=== PATIENT | male | born 1945 | race Caucasian/White ===

== ENCOUNTER 2016-12-23 19:26 | Inpatient (IN) ==
[2016-12-23 21:05] LABS: Bilirubin,Urine Small (Negative); Blood,Urine Large (Negative); Clarity,Urine Turbid (Clear); Color,Urine Dark Yellow (Yellow); Glucose,Urine (UA) Normal (Normal); Ketones,Urine Trace mg/dL (Negative); Leukocyte Esterase,Urine Moderate (Negative); Nitrite,Urine Negative (Negative); PH,Urine 5.5 pH Units (5.0-8.0); Protein,Urine >=300 mg/dL (Neg-Trace); Specific Gravity,Urine 1.018 (1.010-1.025); Urobilinogen,Urine Normal (Normal)
[2016-12-23 21:06] LABS: Bacteria,Urine Many per hpf (None-Few); Squamous Epithelial Cell,Urine Many per lpf (None-Few); WBC,Urine TNTC per hpf (0-3)
[2016-12-23 21:18] LABS: Basophils # 0.1 K/mcL (0.0-0.2); Basophils % 0.2 %; Eosinophils # 0.3 K/mcL (0.0-0.6); Eosinophils % 1.1 %; Hematocrit 39.9 % (37.5-50.1); Hemoglobin 13.2 g/dL (12.9-16.9); Immature Granulocytes % 1.6 % (0-4); Lymphocytes # 0.5 K/mcL (0.6-4.6); Lymphocytes % 2.1 %; Mean Corpuscular HGB Conc 33.1 g/dL (31.6-35.5); Mean Corpuscular Hemoglobin 27.7 pg (28.0-33.3); Mean Corpuscular Volume 83.8 fL (83.0-100.0); Mean Platelet Volume 9.4 fL (9.4-12.4); Monocytes # 2.8 K/mcL (0.0-1.3); Monocytes % 11.1 %; Platelet Count 348 K/mcL (140-400); Red Blood Count 4.76 M/mcL (4.19-5.50); Red Cell Distribution Width 14.8 % (11.5-14.5); Segmented Neutrophils % 83.9 %
[2016-12-23 21:24] LABS: Amorphous Sediment,Urine Few (Few); RBC,Urine 15-30 per hpf (0-3); Yeast,Urine Few per hpf (None Seen)
[2016-12-23 21:25] LABS: Hyaline Casts,Urine Few per lpf (None-Few); Renal Epithelial Cells,Urine Few per hpf (None-Few)
[2016-12-23 21:33] LABS: Calcium 10.6 mg/dL (8.6-10.8)
--- NOTE | 2016-12-23 22:06 | Emergency Department Note ---
Disposition Clinical Impression: FATMATA (acute kidney injury), Nephrostomy tube displaced UTI (urinary tract infection) Qualifiers: Urinary tract infection type: site unspecified Hematuria presence: with hematuria Qualified Code(s): N39.0 - Urinary tract infection, site not specified Disposition: Admitted As Inpatient Condition: Fair Time of Disposition: 22:12 General Adult HPI - General Chief complaint: ED Abdominal Pain Stated complaint: left nephrostomy tube came out Time Seen by Provider: 12/23/16 19:43 Source: patient Limitations: no limitations Nursing Notes Reviewed: Yes Vital Signs Reviewed: Yes - History of Present Illness HPI Narrative: Patient is a 71-year-old male who presents to [facility] ED with a chief complaint of left nephrostomy tube out. Past medical history significant for bladder cancer with metastasis. Patient follows his cancer center here with Dr. Durham. Patient has nephrostomy tubes bilaterally in the legs. States the left one was working better than the right one. However today, when he was getting up from a chair, it got pulled out. Denies any change in his baseline medical condition. He has been worsening over the last few months and per oncology notes, they have had discussions with him regarding changing CODE STATUS. I spoke with the patient and the family who state they would like him to remain a full code at this time. Onset (ago): Just SCRAPER MEAT Pain Scale: 0 Improves with: nothing Worsens with: nothing Associated symptoms: Reports: cough, loss of appetite, shortness of breath, weakness. Denies: chest pain Treatments Prior to Arrival: none - Related Data Home Medications Medication Instructions Recorded Confirmed Insulin ASPART [NovoLOG] 4 - 6 unit SQ TIDWM 06/25/15 12/23/16 Insulin Glargine,Hum.rec.anlog 20 unit SQ BID 06/25/15 12/23/16 [Lantus Solostar] Losartan Potassium [Cozaar] 50 mg PO DAILY 12/12/16 12/23/16 Melatonin [Melatin] 3 mg PO HS 12/12/16 12/23/16 Promethazine [Phenergan] 25 mg PO Q6HR PRN 12/12/16 12/23/16 Cholecalciferol (Vitamin D3) 2,000 unit PO DAILY 12/23/16 12/23/16 [Vitamin D] Megestrol Acetate [Megace] 400 mg PO DAILY 12/23/16 12/23/16 Metoprolol XL (24 HR) Succ [Toprol 25 mg PO DAILY 12/23/16 12/23/16 XL] Ondansetron HCl [Zofran] 4 mg PO Q6H PRN 12/23/16 Previous Rx's Medication Instructions Recorded Docusate Sodium [Colace] 100 mg PO BID PRN #30 capsule 12/23/16 FentaNYL PATCH [Duragesic] 12 mcg TD Q72H #5 patch.td72 12/23/16 Oxycodone HCl [Oxaydo] 5 mg PO Q6H PRN #60 tablet.orl 12/23/16 Polyethylene Glycol 3350 [MiraLAX 1 scoop PO DAILY #510 gm 12/23/16 Powder Bulk 17.9 Oz] Allergies Allergy/AdvReac Type Severity Reaction Status Date / Time No Known Allergies Allergy Verified 12/23/16 19:32 All systems ED: reviewed and negative except as stated. Past Medical History - Past Medical History Attestation: Yes The following information was validated with the patient. Source: patient Medical history: Reports: cancer, diabetes, hypertension, kidney stones Surgical history: Reports: cholecystectomy, other Psychiatric history: Reports: no psych history - Social History Smoking Status: Never smoker Smokeless Tobacco Status: Yes Alcohol use: Reports: none Drug use: Reports: none Physical Exam - General Limitations: no limitations General appearance: alert, in no apparent distress - Head Head exam: atraumatic, normocephalic, normal inspection - Eye Eye exam: Present: normal appearance, PERRL, EOMI - ENT ENT exam: normal exam, normal oropharynx, mucous membranes moist - Neck Neck exam: Present: normal inspection, full ROM, trachea midline - Chest Chest inspection: Present: normal inspection, symmetric chest wall rise - Respiratory Respiratory exam: Present: other (Course breath sounds bilaterally) - Cardiovascular Cardiovascular exam: Present: regular rate, normal rhythm, normal heart sounds - Abdominal Exam Abdominal exam: Present: tenderness, distention Abdominal tenderness: Present: diffuse - Extremities Exam Extremities exam: Present: normal inspection, full ROM. Absent: tenderness, pedal edema - Back Exam Back exam: Present: normal inspection, full ROM. Absent: tenderness - Neurological Exam Neurological exam: Present: alert, oriented X3 - Psychiatric Psychiatric exam: Present: normal affect, normal mood - Skin Skin exam: Present: warm, dry, intact, normal color Course Course Narrative: Patient seen and examined. Left nephrostomy tube out. Family states they are just here to get the nephrostomy tube replaced. I spoke with urologist Dr. Becker who states will need to have interventional radiology, and to do it over the weekend if his renal function is worsening. Lab work shows elevated creatinine now up to 2.5. We will need to get patient admitted. I spoke with hospitalist Dr. Abel who has accepted patient for admission. We are paging interventional radiology at this time to get the patient scheduled for nephrostomy tube placement tomorrow. - Reevaluation(s) Reevaluation #1: Patient's creatinine is worse from before at 2.5. 1L NS ordered. I spoke with hospitalist Dr. Abel who has accepted patient for admission. Would like interventional radiology consult at. I spoke with IR Dr. Wakefield who states they will get it done tomorrow. Since patient's leukocytosis is worse from previous , we will go ahead and place him on some Levaquin. Time: 22:37 Vital Signs Temperature 97.4 F L 12/23/16 19:30 Pulse Rate 77 12/23/16 19:30 Respiratory Rate 16 12/23/16 19:30 Blood Pressure 168/83 12/23/16 19:30 O2 Sat by Pulse Oximetry 93 L 12/23/16 19:30 Temperature 98.1 F 12/23/16 23:03 Pulse Rate 100 12/23/16 23:03 Respiratory Rate 16 12/23/16 23:03 Blood Pressure 130/72 12/23/16 23:03 O2 Sat by Pulse Oximetry 94 L 12/23/16 23:03 Oxygen Delivery Oxygen Delivery Room Air Medical Decision Making - Medical Records Medical records reviewed: Yes I reviewed the patient's medical records. - Lab Data Lab results reviewed: Yes I reviewed the patient's lab results. Result diagrams: 12/23/16 21:02 12/23/16 21:02 Lab Results 12/23/16 12/23/16 12/23/16 Range/Units 20:49 21:02 21:02 WBC 25.0 H (4.3-11.1) K/mcL RBC 4.76 (4.19-5.50) M/mcL Hgb 13.2 (12.9-16.9) g/dL Hct 39.9 (37.5-50.1) % MCV 83.8 (83.0-100.0) fL MCH 27.7 L (28.0-33.3) pg MCHC 33.1 (31.6-35.5) g/dL RDW 14.8 H (11.5-14.5) % Plt Count 348 (140-400) K/mcL MPV 9.4 (9.4-12.4) fL Immature Gran % 1.6 (0-4) % Seg Neutrophils % 83.9 % Lymphocytes % 2.1 % Monocytes % 11.1 % Eosinophils % 1.1 % Basophils % 0.2 % Neutrophils # 21.0 H (1.6-8.9) K/mcL Lymphocytes # 0.5 L (0.6-4.6) K/mcL Monocytes # 2.8 H (0.0-1.3) K/mcL Eosinophils # 0.3 (0.0-0.6) K/mcL Basophils # 0.1 (0.0-0.2) K/mcL PT (9.4-12.1) Seconds INR APTT (26.0-36.0) Seconds Sodium 126 L (136-145) mEq/L Potassium 6.0 H (3.5-4.5) mEq/L Chloride 95 L (98-109) mEq/L Carbon Dioxide 19 (19-29) mEq/L BUN 97 H (8-26) mg/dL Creatinine 2.51 H (0.72-1.25) mg/dL Est GFR ( Amer) 31 L (> 60) Est GFR (Non-Af Amer) 25 L (> 60) BUN/Creatinine Ratio 39 H (6-26) Glucose 187 H (70-99) mg/dL Calculated Osmolality 297 (280-300) Calcium 10.6 (8.6-10.8) mg/dL Urine Color Dark Yellow (Yellow) Urine Clarity Turbid A (Clear) Urine pH 5.5 (5.0-8.0) pH Units Ur Specific [place] 1.018 (1.010-1.025) Urine Protein >=300 H (Neg-Trace) mg/dL Urine Glucose (UA) Normal (Normal) mg/dL Urine Ketones Trace H (Negative) mg/dL Urine Blood Large H (Negative) Urine Nitrite Negative (Negative) Urine Bilirubin Small H (Negative) Urine Urobilinogen Normal (Normal) mg/dL Ur Leukocyte Esterase Moderate H (Negative) Urine Microscopic RBC 15-30 H (0-3) per hpf Urine Microscopic WBC TNTC H (0-3) per hpf Ur Squamous Epith Cells Many H (None-Few) per lpf Ur Renal Epithelial Cell Few (None-Few) per hpf Amorphous Sediment Few (Few) Urine Bacteria Many H (None-Few) per hpf Hyaline Casts Few (None-Few) per lpf Urine Yeast Few H (None Seen) per hpf Ur Culture Indicated? YES A (NO) 12/23/16 Range/Units 21:02 WBC (4.3-11.1) K/mcL RBC (4.19-5.50) M/mcL Hgb (12.9-16.9) g/dL Hct (37.5-50.1) % MCV (83.0-100.0) fL MCH (28.0-33.3) pg MCHC (31.6-35.5) g/dL RDW (11.5-14.5) % Plt Count (140-400) K/mcL MPV (9.4-12.4) fL Immature Gran % (0-4) % Seg Neutrophils % % Lymphocytes % % Monocytes % % Eosinophils % % Basophils % % Neutrophils # (1.6-8.9) K/mcL Lymphocytes # (0.6-4.6) K/mcL Monocytes # (0.0-1.3) K/mcL Eosinophils # (0.0-0.6) K/mcL Basophils # (0.0-0.2) K/mcL PT 15.2 H (9.4-12.1) Seconds INR 1.4 APTT 40.7 H (26.0-36.0) Seconds Sodium (136-145) mEq/L Potassium (3.5-4.5) mEq/L Chloride (98-109) mEq/L Carbon Dioxide (19-29) mEq/L BUN (8-26) mg/dL Creatinine (0.72-1.25) mg/dL Est GFR ( Amer) (> 60) Est GFR (Non-Af Amer) (> 60) BUN/Creatinine Ratio (6-26) Glucose (70-99) mg/dL Calculated Osmolality (280-300) Calcium (8.6-10.8) mg/dL Urine Color (Yellow) Urine Clarity (Clear) Urine pH (5.0-8.0) pH Units Ur Specific [place] (1.010-1.025) Urine Protein (Neg-Trace) mg/dL Urine Glucose (UA) (Normal) mg/dL Urine Ketones (Negative) mg/dL Urine Blood (Negative) Urine Nitrite (Negative) Urine Bilirubin (Negative) Urine Urobilinogen (Normal) mg/dL Ur Leukocyte Esterase (Negative) Urine Microscopic RBC (0-3) per hpf Urine Microscopic WBC (0-3) per hpf Ur Squamous Epith Cells (None-Few) per lpf Ur Renal Epithelial Cell (None-Few) per hpf Amorphous Sediment (Few) Urine Bacteria (None-Few) per hpf Hyaline Casts (None-Few) per lpf Urine Yeast (None Seen) per hpf Ur Culture Indicated? (NO) - EKG Data EKG #1 EKG attestation: Yes I reviewed and interpreted this EKG. EKG results narrative: EKG done at 2156 shows normal sinus rhythm with a rate of [address] elevation or depression. Normal axis. Does appear to be some T-wave flattening compared to prior EKG done 06/23/2015 Attestation Statement - Attestation Attestation: I personally interviewed and examined this patient and my medical decision- making was reviewed with the ED Resident Physician, Dr. Spence. I agree with the documented findings, disposition and treatment plan as described in the documentation. Patient is a 71-year-old white male with history of metastatic bladder CA who presents to the emergency department tonight after he accidentally pulled out his nephrostomy tube on the left. Was attempting to get out of a chair and the tube was caught in the back of a chair and when he got up and asked only pulled out his nephrostomy tube which he brought in to the emergency department in a bag with him. Tube is completely intact. Patient's site appears clean dry and intact with a dressing overlying the area. Patient with no other complaints at this time and reports "I just came in to get my tube replaced". After review of patient's medical records, it appears after obtaining lab evaluation that patient is dehydrated, having worsening renal function including some mild hyperkalemia. Patient also with a significant leukocytosis with a left shift despite being started on Levaquin a few days ago by his oncologist. Patient with IV fluids initiated in the ED. Patient prescribed medication for initial treatment of hyperkalemia. Patient's EKG recorded per Dr. Spence, showing no concerning signs of elevated potassium. Initially spoke with patient's urologist, Dr. Becker was on-call for urology [facility], who recommended admission to the medicine service with a consult IR in the morning for nephrostomy replacement. We did speak with interventional radiology to schedule tube replacement for in the morning. We then spoke with the hospitalist service to admit the patient for continued hydration, recheck of potassium, and to closely monitor patient until morning. Patient remained hemodynamically stable while in the emergency department. Patient also very comfortable, no acute distress, no complaints.
[2016-12-23] MEDS ORDERED: Levofloxacin 250 MG/50 ML 250 MG/50 ML BAG IVPB ONE (22:21)
[2016-12-23 22:32] LABS: INR 1.4; Prothrombin Time 15.2 Seconds (9.4-12.1)
[2016-12-23 22:34] LABS: Activated Partial Thrombo Time 40.7 Seconds (26.0-36.0)
[2016-12-23] MEDS ORDERED: 0.9 % Sodium Chloride 1,000 ML IVC ONE (22:41)
[2016-12-23] MEDS ORDERED: Calcium Gluconate 1,000 MG in D5% in Water 100 ML IVPB ONE (22:48)
[2016-12-24] MEDS ORDERED: 0.9 % Sodium Chloride 1,000 ML IVC ONE ×3 (00:18→23:35)
[2016-12-24] MEDS ORDERED: Melatonin 3 MG TABLET PO PRN (01:08)
[2016-12-24] MEDS ORDERED: Dextrose Gel 15 GM PO PRN ×2 (01:11)
[2016-12-24] MEDS ORDERED: *HR* Morphine 2 MG/ML SYRINGE IVP PRN (01:11)
[2016-12-24] MEDS ORDERED: D5% in Water 1,000 ML IV PRN (01:11)
[2016-12-24] MEDS ORDERED: *HR* Promethazine 25 MG/ML VIAL IVP PRN (01:11)
[2016-12-24] MEDS ORDERED: *HR* Dextrose 50 % in Water (Syg) 50 ML SYRINGE IVP PRN (01:11)
[2016-12-24] MEDS ORDERED: Naloxone 0.4 MG/ML INJ IVP PRN (01:11)
[2016-12-24] MEDS ORDERED: Acetaminophen 325 MG TABLET PO PRN (01:11)
--- NOTE | 2016-12-24 01:36 | Internal Med History&Physical ---
Date of Encounter: 12/24/16 Time of Encounter: 06:00 Assessment and Plan (1) Obesity (BMI 30-39.9) Status: Acute . (2) Abdominal pain of multiple sites Status: Chronic . (3) Ascites Status: Chronic . Qualifiers: Ascites type: malignant Qualified Code(s): R18.0 - Malignant ascites (4) Nephrostomy tube displaced Status: Acute . (5) UTI (urinary tract infection) Status: Acute . Qualifiers: Urinary tract infection type: site unspecified Hematuria presence: with hematuria Qualified Code(s): N39.0 - Urinary tract infection, site not specified; R31.9 - Hematuria, unspecified (6) Hypertension Status: Chronic . Qualifiers: Hypertension type: unspecified secondary hypertension Qualified Code(s): I15.9 - Secondary hypertension, unspecified; I15 - Secondary hypertension (7) Complication of urostomy Status: Chronic . (8) Metastatic carcinoma of the bladder Status: Chronic . (9) Acute kidney injury superimposed on chronic kidney disease Status: Acute . (10) Type 2 diabetes mellitus Status: Chronic . Qualifiers: Diabetes mellitus complication status: with unspecified complications Diabetes mellitus long-term insulin use: unspecified rodent exterminator insulin use status Qualified Code(s): E11.8 - Type 2 diabetes mellitus with unspecified complications (11) Anorexia Status: Chronic . (12) Cancer associated pain Status: Chronic . (13) Chronic respiratory failure with hypoxia Status: Chronic . (14) SIRS due to infectious process with acute organ dysfunction Status: Acute . (15) CKD (chronic kidney disease) stage 3, GFR 30-59 ml/min Status: Chronic . (16) Acute and chronic respiratory failure with hypoxia Status: Acute . (17) Diastolic CHF with preserved left ventricular function, NYHA class 2 Status: Chronic . (18) Diastolic CHF, acute on chronic Status: Acute . Internal Medicine - H&P: HPI Chief complaint: Dislodgment of nephrostomy tube Admitted From: Emergency Dept Plans for Post Hospital Care: Home History of present illness: Mr. 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 Patient is admitted with a chief complaint of loss of left nephrostomy tube and associated abdominal pain. Patient and family presented primarily to have nephrostomy tube reinserted. However interventional radiology normally performs this task as he was referred to him by attending neurologist. As the patient admits during the weekend interventional radiology will proceed with insertion of nephrostomy tube if renal function declines precipitously. Tentatively this will be performed the next morning by interventional radiology as creatinine measurement is found to be 2.5. Presenting screening studies suggest systemic inflammatory response syndrome and sepsis criteria and are met at the time of presentation. Neutrophilic leukocytosis with WBC of 25,000 and increased monocytes demonstrated. Metabolic panel noted hyponatremia and hyperkalemia hypochloremia hyperglycemia. Acute kidney injury with a BUN of 97 creatinine of 2.51 GFR of 25 noted. Urinalysis demonstrated too numerous to count white blood cells and moderate leukocyte esterase and many bacteria. The patient is admitted to medical for further evaluation and disposition. Past Med Surg Social Fam HX - Past Medical History Source: old records reviewed Medical history: arthritis, cancer (Invasive high-grade urothelial carcinoma with extensive angiolymphatic invasion.), diabetes, hypertension, kidney stones , malignancy, renal disease (CKD III.), other Psychiatric history: no psych history - Past Surgical History Surgical History: cancer surgery, cholecystectomy, prostatectomy, ureteral stent (Bilateral nephrostomy tube placement.), other (TURBT. Cystectomy with ileal conduit. Radical cystoprostatectomy.) - Social History Smoking Status: Never smoker Smokeless Tobacco Status: Yes Alcohol use: none Drug use: none - Family History Father Hx Family Cardiac Disorders: Yes (Hypertension) Hx Family Cancer: Yes (Pancreatic Cancer) Internal Medicine - H&P: Meds Insulin ASPART [NovoLOG] 4 - 6 unit SQ TIDWM 06/25/15 [History] Insulin Glargine,Hum.rec.anlog [Lantus Solostar] 20 unit SQ BID 06/25/15 [ History] Losartan Potassium [Cozaar] 50 mg PO DAILY 12/12/16 [History] Melatonin [Melatin] 3 mg PO HS 12/12/16 [History] Promethazine [Phenergan] 25 mg PO Q6HR PRN 12/12/16 [History] Cholecalciferol (Vitamin D3) [Vitamin D] 2,000 unit PO DAILY 12/23/16 [History] Docusate Sodium [Colace] 100 mg PO BID PRN #30 capsule 12/23/16 [Rx] FentaNYL PATCH [Duragesic] 12 mcg TD Q72H #5 patch.td72 12/23/16 [Rx] Megestrol Acetate [Megace] 400 mg PO DAILY 12/23/16 [History] Metoprolol XL (24 HR) Succ [Toprol XL] 25 mg PO DAILY 12/23/16 [History] Ondansetron HCl [Zofran] 4 mg PO Q6H PRN 12/23/16 [History] Oxycodone HCl [Oxaydo] 5 mg PO Q6H PRN #60 tablet.orl 12/23/16 [Rx] Polyethylene Glycol 3350 [MiraLAX Powder Bulk 17.9 Oz] 1 scoop PO DAILY #510 gm 12/23/16 [Rx] Allergies No Known Allergies Allergy (Verified 12/23/16 19:32) All Systems PM: A 10-system review of systems was performed and is negative for pertinent findings except as documented above in the HPI. - Constitutional Constitutional: as per HPI, anorexia, fatigue, malaise, other, no chills, no fever(s), no night sweats - EENT Eyes: as per HPI, no change in vision, no discharge, no pain, no photophobia Ears: as per HPI, no ear discharge, no ear pain, no tinnitus Nose, mouth and throat: as per HPI, no dysphagia, no nasal discharge, no neck pain, no sore throat - Cardiovascular Cardiovascular ROS IM: as per HPI, no chest pain, no diaphoresis, no dyspnea, no lightheadedness, no palpitations, no syncope - Respiratory Respiratory: as per HPI, no cough, no dyspnea, no wheezing, no excessive phlegm production - Gastrointestinal Gastrointestinal: as per HPI, no abdominal pain, no diarrhea, no hematemesis, no hematochezia, no melena, no nausea, no vomiting - Genitourinary Genitourinary ROS male: as per HPI, difficulty urinating, other - Musculoskeletal Musculoskeletal ROS IM: as per HPI, no numbness, no tingling - Integumentary Integumentary IM: as per HPI, no rash, no unusual bruising - Neurological Neurological ROS: as per HPI, no confusion, no convulsions, no focal weakness, no numbness, no tingling, no tremor(s) - Psychiatric Psychiatric: as per HPI - Endocrine Endocrine IM: as per HPI - Hematologic/Lymphatic Hematologic/Lymphatic: as per HPI, no easy bruising - Allergic/Immunologic Allergic/Immunologic: as per HPI - Constitutional Vitals: Temp Pulse Resp BP Pulse Ox 98.1 F 100 16 130/72 94 L 12/23/16 23:03 12/23/16 23:03 12/23/16 23:03 12/23/16 23:03 12/23/16 23:03 Vital Signs Temp Pulse Resp BP Pulse Ox 12/23/16 23:03 98.1 F 100 16 130/72 94 L 12/23/16 22:31 16 121/66 12/23/16 22:14 122/61 12/23/16 19:30 97.4 F L 77 16 168/83 93 L Intake and Output 12/23/16 12/23/16 12/24/16 15:59 23:59 07:59 Intake Total 0 / 0 50 / 50 Output Total 0 / 0 Balance 0 / 0 50 / 50 Intake: IV Fluids 50 / 50 Levaquin 250 MG/50 ML 250 50 / 50 mg In 50 ml @ 50 mls/hr IVPB ONCE ONE Rx#: [id number] Oral 0 / 0 Output: Urine 0 / 0 Other: Weight 105.942 kg Allergies Allergy/AdvReac Type Severity Reaction Status Date / Time No Known Allergies Allergy Verified 12/23/16 19:32 General appearance: Present: cachectic, mild distress, A&O X 3, obese, answers questions appropriately - Head Head exam: Present: atraumatic, normocephalic - Eye Eye exam: Present: EOMI, PERRL, conjuntiva pink, sclera anicteric Pupils: Present: normal accommodation, PERRL - ENT ENT exam: Present: mucous membranes moist, normal oropharynx - Neck Neck exam general surgery: Present: supple, trachea midline. Absent: lymphadenopathy - Respiratory Respiratory exam: Present: chest wall tenderness, decreased breath sounds, prolonged expiratory phase, rhonchi, wheezes. Absent: accessory muscle use, CTAB, rales - Cardiovascular Cardiovascular exam: Present: distant heart sounds, RRR, +S1, +S2. Absent: diastolic murmur, gallop, rubs, systolic murmur - GI/Abdominal GI/Abdominal exam: Present: distended, normal bowel sounds, soft, tenderness, no peritoneal signs - Extremities Exam Extremities exam: Present: warm, radial pulses palpable and symetrical. Absent : calf tenderness, cyanotic, pedal edema - Neurological Exam Neurological exam: Present: alert, altered, CN II-XII intact, oriented X3, no focal deficits. Absent: pronater drift, facial droop, speech deficit - Psychiatric Psychiatric exam: Present: normal affect, normal mood - Skin Skin exam: Present: dry, intact Internal Med - H&P Results - Labs CBC & Chem 7: 12/25/16 04:17 12/25/16 04:17 Labs: Short CBC 12/23/16 Range/Units 21:02 WBC 25.0 H (4.3-11.1) K/mcL Hgb 13.2 (12.9-16.9) g/dL Hct 39.9 (37.5-50.1) % Plt Count 348 (140-400) K/mcL Neutrophils # 21.0 H (1.6-8.9) K/mcL BMP 12/23/16 Range/Units 21:02 Sodium 126 L (136-145) mEq/L Potassium 6.0 H (3.5-4.5) mEq/L Chloride 95 L (98-109) mEq/L Carbon Dioxide 19 (19-29) mEq/L BUN 97 H (8-26) mg/dL Creatinine 2.51 H (0.72-1.25) mg/dL Glucose 187 H (70-99) mg/dL Calcium 10.6 (8.6-10.8) mg/dL Urine 12/23/16 Range/Units 20:49 Urine Color Dark Yellow (Yellow) Urine Clarity Turbid A (Clear) Urine pH 5.5 (5.0-8.0) pH Units Ur Specific [place] 1.018 (1.010-1.025) Urine Protein >=300 H (Neg-Trace) mg/dL Urine Glucose (UA) Normal (Normal) mg/dL Abnormal lab results WBC 25.0 K/mcL (4.3-11.1) H 12/23/16 21:02 MCH 27.7 pg (28.0-33.3) L 12/23/16 21:02 RDW 14.8 % (11.5-14.5) H 12/23/16 21:02 Neutrophils # 21.0 K/mcL (1.6-8.9) H 12/23/16 21:02 Lymphocytes # 0.5 K/mcL (0.6-4.6) L 12/23/16 21:02 Monocytes # 2.8 K/mcL (0.0-1.3) H 12/23/16 21:02 PT 15.2 Seconds (9.4-12.1) H 12/23/16 21:02 APTT 40.7 Seconds (26.0-36.0) H 12/23/16 21:02 Sodium 126 mEq/L (136-145) L 12/23/16 21:02 Potassium 6.0 mEq/L (3.5-4.5) H 12/23/16 21:02 Chloride 95 mEq/L (98-109) L 12/23/16 21:02 BUN 97 mg/dL (8-26) H 12/23/16 21:02 Creatinine 2.51 mg/dL (0.72-1.25) H 12/23/16 21:02 Est GFR ( Amer) 31 (> 60) L 12/23/16 21:02 Est GFR (Non-Af Amer) 25 (> 60) L 12/23/16 21:02 BUN/Creatinine Ratio 39 (6-26) H 12/23/16 21:02 Glucose 187 mg/dL (70-99) H 12/23/16 21:02 Urine Clarity Turbid (Clear) A 12/23/16 20:49 Urine Protein >=300 mg/dL (Neg-Trace) H 12/23/16 20:49 Urine Ketones Trace mg/dL (Negative) H 12/23/16 20:49 Urine Blood Large (Negative) H 12/23/16 20:49 Urine Bilirubin Small (Negative) H 12/23/16 20:49 Ur Leukocyte Esterase Moderate (Negative) H 12/23/16 20:49 Urine Microscopic RBC 15-30 per hpf (0-3) H 12/23/16 20:49 Urine Microscopic WBC TNTC per hpf (0-3) H 12/23/16 20:49 Ur Squamous Epith Cells Many per lpf (None-Few) H 12/23/16 20:49 Urine Bacteria Many per hpf (None-Few) H 12/23/16 20:49 Urine Yeast Few per hpf (None Seen) H 12/23/16 20:49 Ur Culture Indicated? YES (NO) A 12/23/16 20:49 Laboratory Results WBC 25.0 K/mcL (4.3-11.1) H 12/23/16 21:02 RBC 4.76 M/mcL (4.19-5.50) 12/23/16 21:02 Hgb 13.2 g/dL (12.9-16.9) 12/23/16 21:02 Hct 39.9 % (37.5-50.1) 12/23/16 21:02 MCV 83.8 fL (83.0-100.0) 12/23/16 21:02 MCH 27.7 pg (28.0-33.3) L 12/23/16 21:02 MCHC 33.1 g/dL (31.6-35.5) 12/23/16 21:02 RDW 14.8 % (11.5-14.5) H 12/23/16 21:02 Plt Count 348 K/mcL (140-400) 12/23/16 21:02 MPV 9.4 fL (9.4-12.4) 12/23/16 21:02 Immature Gran % 1.6 % (0-4) 12/23/16 21:02 Seg Neutrophils % 83.9 % 12/23/16 21:02 Lymphocytes % 2.1 % 12/23/16 21:02 Monocytes % 11.1 % 12/23/16 21:02 Eosinophils % 1.1 % 12/23/16 21:02 Basophils % 0.2 % 12/23/16 21:02 Neutrophils # 21.0 K/mcL (1.6-8.9) H 12/23/16 21:02 Lymphocytes # 0.5 K/mcL (0.6-4.6) L 12/23/16 21:02 Monocytes # 2.8 K/mcL (0.0-1.3) H 12/23/16 21:02 Eosinophils # 0.3 K/mcL (0.0-0.6) 12/23/16 21:02 Basophils # 0.1 K/mcL (0.0-0.2) 12/23/16 21:02 PT 15.2 Seconds (9.4-12.1) H 12/23/16 21:02 INR 1.4 12/23/16 21:02 APTT 40.7 Seconds (26.0-36.0) H 12/23/16 21:02 Sodium 126 mEq/L (136-145) L 12/23/16 21:02 Potassium 6.0 mEq/L (3.5-4.5) H 12/23/16 21:02 Chloride 95 mEq/L (98-109) L 12/23/16 21:02 Carbon Dioxide 19 mEq/L (19-29) 12/23/16 21:02 BUN 97 mg/dL (8-26) H 12/23/16 21:02 Creatinine 2.51 mg/dL (0.72-1.25) H 12/23/16 21:02 Est GFR ( Amer) 31 (> 60) L 12/23/16 21:02 Est GFR (Non-Af Amer) 25 (> 60) L 12/23/16 21:02 BUN/Creatinine Ratio 39 (6-26) H 12/23/16 21:02 Glucose 187 mg/dL (70-99) H 12/23/16 21:02 Calculated Osmolality 297 (280-300) 12/23/16 21:02 Calcium 10.6 mg/dL (8.6-10.8) 12/23/16 21:02 Urine Color Dark Yellow (Yellow) 12/23/16 20:49 Urine Clarity Turbid (Clear) A 12/23/16 20:49 Urine pH 5.5 pH Units (5.0-8.0) 12/23/16 20:49 Ur Specific [place] 1.018 (1.010-1.025) 12/23/16 20:49 Urine Protein >=300 mg/dL (Neg-Trace) H 12/23/16 20:49 Urine Glucose (UA) Normal mg/dL (Normal) 12/23/16 20:49 Urine Ketones Trace mg/dL (Negative) H 12/23/16 20:49 Urine Blood Large (Negative) H 12/23/16 20:49 Urine Nitrite Negative (Negative) 12/23/16 20:49 Urine Bilirubin Small (Negative) H 12/23/16 20:49 Urine Urobilinogen Normal mg/dL (Normal) 12/23/16 20:49 Ur Leukocyte Esterase Moderate (Negative) H 12/23/16 20:49 Urine Microscopic RBC 15-30 per hpf (0-3) H 12/23/16 20:49 Urine Microscopic WBC TNTC per hpf (0-3) H 12/23/16 20:49 Ur Squamous Epith Cells Many per lpf (None-Few) H 12/23/16 20:49 Ur Renal Epithelial Cell Few per hpf (None-Few) 12/23/16 20:49 Amorphous Sediment Few (Few) 12/23/16 20:49 Urine Bacteria Many per hpf (None-Few) H 12/23/16 20:49 Hyaline Casts Few per lpf (None-Few) 12/23/16 20:49 Urine Yeast Few per hpf (None Seen) H 12/23/16 20:49 Ur Culture Indicated? YES (NO) A 12/23/16 20:49 - Attending Attestation My signature below is to certify that this patient is under my care and that I, or nurse practitioner, or a physician's office assistant receptionist, or Resident Physician working with me, has had a [id number] encounter with this patient. Allergies No Known Allergies Allergy (Verified 12/23/16 19:32) Home Medications Medication Instructions Recorded Confirmed Type Insulin ASPART [NovoLOG] 4 - 6 unit SQ TIDWM 06/25/15 12/23/16 History Insulin Glargine,Hum.rec.anlog 20 unit SQ BID 06/25/15 12/23/16 History [Lantus Solostar] Losartan Potassium [Cozaar] 50 mg PO DAILY 12/12/16 12/23/16 History Melatonin [Melatin] 3 mg PO HS 12/12/16 12/23/16 History Promethazine [Phenergan] 25 mg PO Q6HR PRN 12/12/16 12/23/16 History Cholecalciferol (Vitamin D3) 2,000 unit PO DAILY 12/23/16 12/23/16 History [Vitamin D] Megestrol Acetate [Megace] 400 mg PO DAILY 12/23/16 12/23/16 History Metoprolol XL (24 HR) Succ [Toprol 25 mg PO DAILY 12/23/16 12/23/16 History XL] Ondansetron HCl [Zofran] 4 mg PO Q6H PRN 12/23/16 History I & O 12/21/16 12/22/16 12/23/16 12/24/16 23:59 23:59 23:59 23:59 Intake Total 0 / 0 50 / 50 Output Total 0 / 0 Balance 0 / 0 50 / 50 Weight 105.942 kg Intake: IV Fluids 50 / 50 Levaquin 250 MG/50 ML 250 50 / 50 mg In 50 ml @ 50 mls/hr IVPB ONCE ONE Rx#: [id number] Oral 0 / 0 Output: Urine 0 / 0 Medications Acetaminophen (Tylenol) 650 mg PO Q6HR PRN PRN Reason: Mild Pain (1-3) Stop: 06/25/17 01:12 Dextrose/Water (Dextrose 50% (Syg)) 25 ml IVP AD PRN PRN Reason: Hypoglycemia Stop: 06/25/17 01:12 Docusate Sodium (Colace) 100 mg PO BID PRN; Protocol PRN Reason: Constipation Stop: 06/25/17 01:05 Glucagon (Glucagen) 1 mg IM ONCE PRN PRN Reason: Hypoglycemia Stop: 06/25/17 01:12 Glucose (Gluctose) 15 gm PO ONCE PRN PRN Reason: Hypoglycemia Stop: 06/25/17 01:12 Glucose (Gluctose) 30 gm PO ONCE PRN PRN Reason: Hypoglycemia Stop: 06/25/17 01:12 Sodium Chloride (0.9 % Sodium Chloride) 1,000 mls @ 100 mls/hr IVC .Q10H ONE Stop: 12/24/16 10:17 Last Admin: 12/24/16 00:29 Dose: 100 mls/hr Dextrose (Dextrose 5%) 1,000 mls @ 100 mls/hr IV CONT PRN PRN Reason: HYPOGLYCEMIA Stop: 06/25/17 01:12 Insulin Detemir (Levemir) 16 unit 0.15 unit/kg (16 unit) SQ HS SKY Stop: 06/25/17 21:01 Insulin Human Lispro (Humalog) 0 units SQ TIDAC SKY PRN Reason: Protocol Stop: 06/25/17 07:31 Insulin Human Lispro (Humalog) 0 units SQ HS SKY PRN Reason: Protocol Stop: 06/25/17 21:01 Losartan Potassium (Cozaar) 50 mg PO DAILY [facility] Stop: 06/25/17 09:01 Megestrol Acetate (Megace) 400 mg PO DAILY SKY PRN Reason: Protocol Stop: 06/25/17 09:01 Melatonin (Melatonin) 3 mg PO HS [facility] Stop: 06/25/17 01:16 Metoprolol Succinate (Toprol Xl) 25 mg PO DAILY [facility] Stop: 06/25/17 09:01 Morphine Sulfate (Morphine Sulfate) 2 mg IVP Q4HR PRN PRN Reason: Severe Pain (7-10) Stop: 06/25/17 01:12 Naloxone HCl (Narcan) 0.4 mg IVP Q2MIN PRN PRN Reason: Opioid Reversal Stop: 06/25/17 01:12 Oxycodone HCl (Roxicodone) 10 mg PO Q6H PRN PRN Reason: Pain Pantoprazole Sodium (Protonix) 40 mg IVP DAILY [facility] Stop: 06/25/17 09:01 Polyethylene Glycol (Miralax) 17 gm PO DAILY [facility] Stop: 06/25/17 09:01 Promethazine HCl (Phenergan) 12.5 mg IVP Q6HR PRN PRN Reason: Nausea And Vomiting Stop: 06/25/17 01:12 Vitamin D (Vitamin D) 1,000 unit PO DAILY [facility] Stop: 06/25/17 09:01 Discontinued Medications Levofloxacin/Dextrose (Levaquin 250 Mg/50 Ml) 250 mg in 50 mls @ 50 mls/hr IVPB ONCE ONE PRN Reason: Protocol Stop: 12/23/16 23:20 Last Infusion: 12/24/16 01:15 Dose: 0 mls/hr Sodium Chloride (0.9 % Sodium Chloride) 1,000 mls @ 3,750 mls/hr IVC .Q16M ONE Stop: 12/23/16 22:56 Last Admin: 12/24/16 00:19 Dose: Calcium Gluconate 1,000 mg/ (Dextrose) 110 mls @ 220 mls/hr IVPB ONCE ONE Stop: 12/23/16 23:17 Last Admin: 12/24/16 00:08 Dose: 220 mls/hr Melatonin (Melatonin) 3 mg PO HS PRN PRN Reason: Insomnia Stop: 06/25/17 01:09 Sodium Polystyrene Sulfonate (Kayexalate) 30 gm PO ONCE ONE Stop: 12/23/16 22:49 Last Admin: 12/24/16 00:26 Dose: 30 gm Nursing Notes 12/23/16 21:27 Transport Report by Jane Cook Date: 12/23/16 Transport Method: Ambulatory No Known Allergies Allergy (Verified 12/23/16 19:32) Resuscitation Status Oxygen: Mental Status: Fall Risk: Isolation: Nurse Required for Transport: No ___ Yes Limb Restrictions: No ___ Yes Behavioral issue/Risk for Elopement: No ___ Yes Telemetry Room Notification: Destination: MRI XRAY STRESS ULTRASOUND CT DIALYSIS ENDO OTHER: Depart Time: Nurse: Transporter: Arrive Time: Received by: ___ Return Time: Nurse: Transporter: ] Initialized on 12/23/16 21:27 - END OF NOTE 12/23/16 21:27 Transport Report by Jane Cook Date: 12/23/16 Transport Method: Ambulatory No Known Allergies Allergy (Verified 12/23/16 19:32) Resuscitation Status Oxygen: Mental Status: Fall Risk: Isolation: Nurse Required for Transport: No ___ Yes Limb Restrictions: No ___ Yes Behavioral issue/Risk for Elopement: No ___ Yes Telemetry Room Notification: Destination: MRI XRAY STRESS ULTRASOUND CT DIALYSIS ENDO OTHER: Depart Time: Nurse: Transporter: Arrive Time: Received by: ___ Return Time: Nurse: Transporter: ] Initialized on 12/23/16 21:27 - END OF NOTE Orders 12/23/16 20:30 NPO (Nursing Order) [RC] NOW Saline lock [RC] .ONCE Vital Signs Assessment [RC] PROTOCOL 12/23/16 20:49 Culture,Urine [RM] Stat DEAN Source: [facility] [place] Specimen Description: Urinalysis Reflex Cult & Micro [URIN] Stat Comment: Specimen: Has been collected 12/23/16 21:[address] Stat Comment: Reason for Visit: metastatic cancer, L nephrostomy tube out Activated Partial Thrombo Time [COAG] Stat Comment: Specimen: Send someone from the department to collect Basic Metabolic Panel Stat Comment: Specimen: Send someone from the department to collect Complete Blood Count [HEME] Stat Comment: Specimen: Send someone from the department to collect Prothrombin Time INR [COAG] Stat Comment: Specimen: Send someone from the department to collect 12/23/16 21:39 Obtain Old EKG [RC] .ONCE ECG 12 lead ECG [ECG] Stat Mode Of Transportation: Ambulatory Reason For Exam: hyperk Order Doctor: Divine Spence Exam Performed At:: [place] 12/23/16 21:40 12 lead ECG assessment [RC] NOW 12/23/16 22:21 Levofloxacin 250 MG/50 ML [Levaquin 250 MG/50 ML] 250 mg in 50 ml IVPB ONCE 12/23/16 22:41 0.9 % Sodium Chloride 1,000 ml IVC 3,750 mls/hr 12/23/16 22:48 Calcium Gluconate 1,000 mg D5% in Water [Dextrose 5%] 100 ml IVPB ONCE Sodium Polystyrene Sulfonate [Kayexalate] 30 gm PO ONCE ONE 12/23/16 23:08 Consult to Nutrition [CONS] Routine Comment: Consulting Provider: NUTRITION Reason for Dietary Consult: Other Other:: Patient has decreased appetite from Chemo Consult to Industrial Hygiene Technician [CONS] Routine Reason for SW Consult: Discharge planning, patient has cancer and receiving chemo 12/23/16 23:22 Consult to Interventional Radiology [CONS] Routine Consulting Provider: Radiology Interventional Cols Reason for Consult: L nephrostomy tube placement Call Completed: Yes 12/23/16 Breakfast NPO Diet Diet Modifications: 12/23/16 Dinner NPO Diet Diet Modifications: 12/23/16 Lunch NPO Diet Diet Modifications: 12/24/16 00:18 0.9 % Sodium Chloride 1,000 ml IVC 100 mls/hr 12/24/16 01:04 Docusate [Colace] 100 mg PO BID PRN Oxycodone HCl [Oxaydo] 10 mg PO Q6H PRN How will this medication be supplied?: Pharmacy to Subsitute 12/24/16 01:08 Melatonin 3 mg PO HS PRN 12/24/16 01:11 Glucose, blood poc measurement [RC] ACHS Vital Signs Assessment [RC] Q4H Consult to Internal Audit Consultant [CONS] Routine Comment: @ 100 MLS/HR [prn Hypoglycemia] D5% in Water [Dextrose 5%] 1,000 ml IV CONT Acetaminophen [Tylenol] 650 mg PO Q6HR PRN Dextrose 50 % in Water (Syg) [Dextrose 50% (Syg)] 25 ml IVP AD PRN Dextrose Gel [Gluctose] 15 gm PO ONCE PRN Dextrose Gel [Gluctose] 30 gm PO ONCE PRN Glucagon, Human Recombinant [GlucaGen] 1 mg IM ONCE PRN Morphine [Morphine Sulfate] 2 mg IVP Q4HR PRN Naloxone [Narcan] 0.4 mg IVP Q2MIN PRN Promethazine [Phenergan] 12.5 mg IVP Q6HR PRN 12/24/16 01:13 Hypoglycemia Treatment Orders [RC] .once Notify provider [RC] once Physician Instructions: Peripheral IV [RC] CONT 12/24/16 01:14 Bed rest [RC] .CONT Physician Instructions: Bed rest w/bathroom privileges [RC] .PRN Cardiac Monitoring Med/Surg [RC] .CONT Telemetry Reason: ACS/CP Continuous pulse oximetry [RC] CONT Comment: Measure intake and output [RC] QSHIFT Measure weight [RC] DAILY RT has an order or consult [RC] NOW 12/24/16 01:15 Oxygen via nasal cannula Nasal Cannula 2 lpm Comment: Titrate O2 to main O2 sat greater than: 92% Melatonin 3 mg PO HS Up with Assist Daily Physician Instructions: Comment: 12/24/16 01:19 Hgb A1C Routine Specimen: Send someone from the department to collect Comment: 12/24/16 02:00 BMP [Basic Metabolic Panel] Stat Comment: Specimen: Send someone from the department to collect 12/24/16 04:00 Ammonia AM 0400 Specimen: Send someone from the department to collect Comment: C-Reactive Protein AM 0400 Specimen: Send someone from the department to collect Comment: Comprehensive Metabolic Panel AM 0400 Specimen: Send someone from the department to collect Comment: Culture,Blood [BC] AM 0400 Quantity: 1 Specimen: Send someone from the department to collect Comment: DEAN Source: Peripheral Venipuncture Specimen Description: Lipid Panel AM 0400 Specimen: Send someone from the department to collect Comment: Magnesium AM 0400 Specimen: Send someone from the department to collect Comment: Phosphorous AM 0400 Specimen: Send someone from the department to collect Comment: Thyroid Stimulating Hormone AM 0400 Specimen: Send someone from the department to collect Comment: 12/24/16 07:30 Insulin LISPRO [HumaLOG] See Protocol SQ TIDAC 12/24/16 09:00 Cholecalciferol (Vitamin D3) [Vitamin D3] 2,000 unit PO DAILY How will this medication be supplied?: Pharmacy to Subsitute Losartan Potassium [Cozaar] 50 mg PO DAILY How will this medication be supplied?: Pharmacy to Subsitute Megestrol Acetate [Megace] 400 mg PO DAILY Metoprolol XL (24 HR) Succ [Toprol XL] 25 mg PO DAILY Pantoprazole [Protonix] 40 mg IVP DAILY Polyethylene Glycol 3350 [MiraLAX bowel prep] DOSE gm PO DAILY 12/24/16 21:00 Insulin DETEMIR [Levemir] 16 unit SQ HS Insulin LISPRO [HumaLOG] See Protocol SQ HS 12/24/16 Breakfast Diabetic Diet Diet Modifications: Renal Diet Diet Modifications: 12/25/16 01:15 Up with Assist Daily Physician Instructions: Comment: 12/26/16 01:15 Up with Assist Daily Physician Instructions: Comment: Patient Problems (Last Updated 12/24/16 @ 01:56 by Mickey Abel MD) FATMATA (acute kidney injury) (Acute) Abdominal pain of multiple sites (Acute) Acute kidney injury superimposed on chronic kidney disease (Acute) Anorexia (Acute) Ascites (Acute) CKD (chronic kidney disease) stage 3, GFR 30-59 ml/min (Acute) Cancer associated pain (Acute) Chronic respiratory failure with hypoxia (Acute) Metastatic carcinoma of the bladder (Acute) Nephrostomy tube displaced (Acute) Obesity (BMI 30-39.9) (Acute) Obesity hypoventilation syndrome (Acute) SIRS due to infectious process with acute organ dysfunction (Acute) Type 2 diabetes mellitus (Acute) UTI (urinary tract infection) (Acute) Vital Signs Temp Pulse Resp BP Pulse Ox 12/23/16 23:03 98.1 F 100 16 130/72 94 L 12/23/16 22:31 16 121/66 12/23/16 22:14 122/61 12/23/16 19:30 97.4 F L 77 16 168/83 93 L Laboratory Results 12/23/16 12/23/16 12/23/16 Range/Units 20:49 21:02 21:02 WBC 25.0 H (4.3-11.1) K/mcL RBC 4.76 (4.19-5.50) M/mcL Hgb 13.2 (12.9-16.9) g/dL Hct 39.9 (37.5-50.1) % MCV 83.8 (83.0-100.0) fL MCH 27.7 L (28.0-33.3) pg MCHC 33.1 (31.6-35.5) g/dL RDW 14.8 H (11.5-14.5) % Plt Count 348 (140-400) K/mcL MPV 9.4 (9.4-12.4) fL Immature Gran % 1.6 (0-4) % Seg Neutrophils % 83.9 % Lymphocytes % 2.1 % Monocytes % 11.1 % Eosinophils % 1.1 % Basophils % 0.2 % Neutrophils # 21.0 H (1.6-8.9) K/mcL Lymphocytes # 0.5 L (0.6-4.6) K/mcL Monocytes # 2.8 H (0.0-1.3) K/mcL Eosinophils # 0.3 (0.0-0.6) K/mcL Basophils # 0.1 (0.0-0.2) K/mcL PT (9.4-12.1) Seconds INR APTT (26.0-36.0) Seconds Sodium 126 L (136-145) mEq/L Potassium 6.0 H (3.5-4.5) mEq/L Chloride 95 L (98-109) mEq/L Carbon Dioxide 19 (19-29) mEq/L BUN 97 H (8-26) mg/dL Creatinine 2.51 H (0.72-1.25) mg/dL Est GFR ( Amer) 31 L (> 60) Est GFR (Non-Af Amer) 25 L (> 60) BUN/Creatinine Ratio 39 H (6-26) Glucose 187 H (70-99) mg/dL Calculated Osmolality 297 (280-300) Calcium 10.6 (8.6-10.8) mg/dL Urine Color Dark Yellow (Yellow) Urine Clarity Turbid A (Clear) Urine pH 5.5 (5.0-8.0) pH Units Ur Specific [place] 1.018 (1.010-1.025) Urine Protein >=300 H (Neg-Trace) mg/dL Urine Glucose (UA) Normal (Normal) mg/dL Urine Ketones Trace H (Negative) mg/dL Urine Blood Large H (Negative) Urine Nitrite Negative (Negative) Urine Bilirubin Small H (Negative) Urine Urobilinogen Normal (Normal) mg/dL Ur Leukocyte Esterase Moderate H (Negative) Urine Microscopic RBC 15-30 H (0-3) per hpf Urine Microscopic WBC TNTC H (0-3) per hpf Ur Squamous Epith Cells Many H (None-Few) per lpf Ur Renal Epithelial Cell Few (None-Few) per hpf Amorphous Sediment Few (Few) Urine Bacteria Many H (None-Few) per hpf Hyaline Casts Few (None-Few) per lpf Urine Yeast Few H (None Seen) per hpf Ur Culture Indicated? YES A (NO) 12/23/16 Range/Units 21:02 WBC (4.3-11.1) K/mcL RBC (4.19-5.50) M/mcL Hgb (12.9-16.9) g/dL Hct (37.5-50.1) % MCV (83.0-100.0) fL MCH (28.0-33.3) pg MCHC (31.6-35.5) g/dL RDW (11.5-14.5) % Plt Count (140-400) K/mcL MPV (9.4-12.4) fL Immature Gran % (0-4) % Seg Neutrophils % % Lymphocytes % % Monocytes % % Eosinophils % % Basophils % % Neutrophils # (1.6-8.9) K/mcL Lymphocytes # (0.6-4.6) K/mcL Monocytes # (0.0-1.3) K/mcL Eosinophils # (0.0-0.6) K/mcL Basophils # (0.0-0.2) K/mcL PT 15.2 H (9.4-12.1) Seconds INR 1.4 APTT 40.7 H (26.0-36.0) Seconds Sodium (136-145) mEq/L Potassium (3.5-4.5) mEq/L Chloride (98-109) mEq/L Carbon Dioxide (19-29) mEq/L BUN (8-26) mg/dL Creatinine (0.72-1.25) mg/dL Est GFR ( Amer) (> 60) Est GFR (Non-Af Amer) (> 60) BUN/Creatinine Ratio (6-26) Glucose (70-99) mg/dL Calculated Osmolality (280-300) Calcium (8.6-10.8) mg/dL Urine Color (Yellow) Urine Clarity (Clear) Urine pH (5.0-8.0) pH Units Ur Specific [place] (1.010-1.025) Urine Protein (Neg-Trace) mg/dL Urine Glucose (UA) (Normal) mg/dL Urine Ketones (Negative) mg/dL Urine Blood (Negative) Urine Nitrite (Negative) Urine Bilirubin (Negative) Urine Urobilinogen (Normal) mg/dL Ur Leukocyte Esterase (Negative) Urine Microscopic RBC (0-3) per hpf Urine Microscopic WBC (0-3) per hpf Ur Squamous Epith Cells (None-Few) per lpf Ur Renal Epithelial Cell (None-Few) per hpf Amorphous Sediment (Few) Urine Bacteria (None-Few) per hpf Hyaline Casts (None-Few) per lpf Urine Yeast (None Seen) per hpf Ur Culture Indicated? (NO) Assessments/Treatments 12 lead ECG assessment Start: 12/23/16 21: 40 Freq: NOW Status: Complete Document 12/23/16 21:58 [facility] (Rec: 12/23/16 21:58 [facility] [id number]) EKG Time EKG Completed 21:56 EKG performed by ELAN Sage EKG shown to and signed by Dr. Yang Collect Specimen: [id number] Start: 12/23/16 20: 52 Freq: ONCE Status: Complete Document 12/23/16 20:52 [facility] (Rec: 12/23/16 20:52 [id number] ED Abdominal Pain Assessment Start: 12/23/16 19: 30 Freq: Status: Complete Document 12/23/16 19:54 [facility] (Rec: 12/23/16 19:58 [facility] [id number]) Abdominal Pain Improves With Nothing Worsens With Nothing Associated Symptoms Denies Other Symptoms Level Of Consciousness Awake Alert Appropriate Patient Orientation Person Place Time Name Age Date of Day of Month Day of Week Month Year Time of Day Skin Temperature Warm Skin Moisture Dry Skin Turgor Elastic Capillary Refill < 3 Seconds Respiratory Depth Normal Respiratory Effort Normal for Patient Spontaneous Non-Labored Abdomen Description Round Distended Nausea/Vomiting Presence None Voiding Method Nephrostomy Tubes ED Comment Pt reports his nephrostomy bag got pulled out about 1 hour LINOTYPER. Pt denies pain, ROBB, or any other symptoms. ED Discharge Assessment Start: 12/23/16 19: 30 Freq: Status: Complete Document 12/23/16 22:31 [facility] (Rec: 12/23/16 22:32 [id number] Discharge Assessment ED Discharge Disposition Admitted ED Condition on Discharge Fair Med Rec/Patient Pharmacy Completed? Yes Admitted to 3A Bed assigned 3A46 Transported by instructional media services technician Transported with IV Report given to Nurse Care transferred to (name/credentials) SHAWN Calle Information relayed patient's care treatments medications given condition recent/anticipated changes Clinical Documentation Summary Provided Yes Pain Scale 3 Pain Scale Used FLACC (1-10) Blood Pressure 121/66 Heart rate 96 Respiratory Rate 16 Oxygen Delivery Room Air Oxygen Saturation 93 Critical Care Minutes 0 ED Pain Assessment Start: 12/23/16 19: 30 Freq: Status: Complete Document 12/23/16 19:58 [facility] (Rec: 12/23/16 19:58 [id number] Pain Assessment Pain Present Reports No Pain Fall Precautions Acute Start: 12/23/16 22: 57 Freq: Q12H Status: Active Document 12/23/16 23:10 MJW (Rec: 12/23/16 23:25 MJW [id number]) [facility] Fall Risk Assessment Tool Age 70-79 years (2 points) Fall History One fall within the last 6 months before admission (5 points) Elimination, Bowel, and Urine N/A (0 pts) Medications: Includes 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 IV infusions, chest tube, indwelling Mobility Unsteady gait (2 points) Cognition N/A (0 points) Total Fall Risk Score 12 Fall Risk Category Moderate Risk (6-13) Fall Risk Interventions Low Risk Interventions Bed in lowest position Top side rails up x 2 Secure brake on bed Use properly fitting non-skid footwear Call light and frequently needed objects within reach Encourage patients/families to call for assistance when needed Fall education including risk assessment, injury risk and routine/ Inspect environment for safety and communication risk Supervise and assist with toileting/ADLs as needed Moderate Risk Interventions Institue fall-risk tooklit ( yellow flag, yellow non-skid socks and IV-Invasive Line Management Start: 12/23/16 22: 57 Freq: Q4H Status: Active Document 12/23/16 23:10 MJW (Rec: 12/23/16 23:25 MJW [id number]) IV/Invasive Line Assessment Right Antecubital Date of Insertion 12/23/16 Time of Insertion 21:02 Reason for Line Insertion/Rationale for Replace Lost Fluids Insertion Maintain Electrolyte Balance Provide Access for IV Medication(s) Provide Access for Blood Gauge (gauge) 20 IV Catheter Type Peripheral IV Site Observation Patent Dressing Applied Window Dressing Dry/Intact Line Care P-Locked Initial Patient Assessment Start: 12/23/16 22: 57 Freq: .ONCE Status: Active Document 12/23/16 22:58 MJW (Rec: 12/23/16 23:08 MJW [id number]) General Questions Date of Arrival on Unit 12/23/16 Time of Arrival on Unit 22:59 Admitted From Emergency Dept Chief Complaint left nephrostomy tube pulled out Onset of Chief Complaint 12/23/16 History Provided By Patient Family Member Orientation To Call Light Bed Phone TV Bathroom Smoking Policy Visiting Hours Procedures ID Bracelet On Emergency Contact Name Willy Black Relationship to Patient Emergency Contact / [phone] Bands applied ID band Allergy band Patient Health Portal Patient was provided information on Yes accessing patient portal Patient Requests Portal Enrollment No Reason No Portal Enrollment Patient Declines Malnutrition Screening Tool (MST) Have You Recently Lost Weight Without Yes Trying If Yes, How Much Weight Have You Lost 2-13 Pounds Have You Been Eating Poorly Because of a Yes Decreased Appetite MST Score 2 Advance Directives Advance Directives Yes Advance Directives Information Provided No Reason Not Provided Not w pt Advance Directives on File No Living Will Yes Power of Ux Engineer No Patient Rights Copy of Rights Given and Verbalizes Yes Understanding Tobacco Free [place]: Copy of AHS Yes Statement Given and Patient Verbalizes Understanding Communication Ability Primary Language Citizen [place] Preferred Language Citizen [place] 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 Ability to Follow Directions Good Able to Read Yes Able to Write Yes Learning Preferences Written Discussion Hearing Ability Hard of Hearing Visual Assistive Devices Glasses Pain Assessment Do You Have Any Ongoing (Chronic) Pain No Problems Educated on Pain Scale Yes Past Medical History Medical history cancer diabetes hypertension kidney stones Male Surgical History cholecystectomy other Psychiatric history no psych history Smoking Status Never smoker Smokeless Tobacco Status Yes Alcohol use none Drug use none Occupational status retired Current living situation Home With Family Recent Out of Country Travel Within the No Last 8 Weeks Exposure or Possible Exposure to Illness No During Travel Family History-Meaningful Use Father Hx Family Cardiac Disorders Yes: Hypertension Hx Family Cancer Yes: Pancreatic Cancer Spiritual Needs Spiritual Referral None Psychosocial Over Age 75 and Lives Alone or Over Age No 80 Potential Need for Follow-up Care (ECF, Yes Home Health, ECT) Developmentally Disabled or History of No Mental Health Problems Diagnosis with Assisted Need or Yes Terminal Implications Responsible for Care of Others No Financial Concerns No Suspected Abuse or Neglect No Suicidal or Homicidal Ideation No Social Service Consult Needed Yes Functional Assessment Employment Status Retired Eating (Feeding) Ability Independent Bathing Ability Independent Upper Body Dressing Ability Independent Lower Body Dressing Ability Independent Ambulation Ability Independent Toileting Ability Independent Bladder Continent Bowel Continent Normal Bowel Pattern Daily Date of Last Known Bowel Movement 12/22/16 Intake and Output, Strict Start: 12/23/16 22: 57 Freq: Q8H Status: Active Document 12/23/16 23:03 O (Rec: 12/23/16 23:05 [id number] Intake and Output Intake, Oral Amount 0 Output, Urine Amount 0 Measure weight Start: 12/23/16 22: 57 Freq: Status: Active Document 12/23/16 23:16 O (Rec: 12/23/16 23:16 LMO [id number]) Height and Weight Weight 105.942 kg Weight Measurement Method Built in [facility] NPO (Nursing Order) Start: 12/23/16 20: 30 Freq: NOW Status: Complete Document 12/23/16 20:42 [facility] (Rec: 12/23/16 20:42 [facility] [id number]) Obtain Old EKG Start: 12/23/16 21: 39 Freq: .ONCE Status: Complete Document 12/23/16 21:51 [facility] (Rec: 12/23/16 21:51 [facility] [id number]) Oxygen administration Start: 12/23/16 22: 57 Freq: Q12H Status: Active Document 12/23/16 23:10 MJW (Rec: 12/23/16 23:25 MJW [id number]) Oxygen Oxygen S/U/Change No Oxygen Delivery Method Room Air Patient Belongings Start: 12/23/16 22: 57 Freq: .ONCE Status: Active Document 12/23/16 22:58 MJW (Rec: 12/23/16 23:08 MJW [id number]) Patient Belongings Belongings With Patient on Admission Yes At Bedside Patient Belongings Coat Glasses Hat Hearing Aid, Right Hearing Aid, Left Pants Shirt Shoes Socks Patient Rounding Start: 12/23/16 22: 57 Freq: Q1H Status: Active Document 12/23/16 23:03 LMO (Rec: 12/23/16 23:05 LMO [id number]) Hourly Rounding Hourly Rounding Checked for Patient Positioning Patient Personal Items Placed Within Reach Hourly Rounding Completed Yes Patient Awake Is family present? Yes Safety Call Light Within Reach Bed Position Low Phone Within Reach Bed Brake On Are the Floors Free From Trip Hazards? Yes Is the Room Free From Clutter? Yes Turn and Postion Bedrest No Turn Q 2HR No Patient Position Sitting on Side of Bed Document 12/23/16 23:10 MJW (Rec: 12/23/16 23:25 MJW [id number]) Hourly Rounding Hourly Rounding Checked for Patient Positioning Patient Personal Items Placed Within Reach Checked Patient Pain Level Hourly Rounding Completed Yes Patient Awake Is family present? Yes: Daughter Equipment in Use Specialty Bed Safety Call Light Within Reach Bed Position Low Bed Exit Alarm Fall Precautions Phone Within Reach Bed Brake On Side Rails Up X2 Are the Floors Free From Trip Hazards? Yes Is the Room Free From Clutter? Yes Turn and Postion Bedrest No Turn Q 2HR No Patient Position Left Side Document 12/24/16 00:32 MJW (Rec: 12/24/16 00:32 MJW [id number]) Hourly Rounding Hourly Rounding Checked for Patient Positioning Patient Personal Items Placed Within Reach Checked Patient Pain Level Hourly Rounding Completed Yes Patient Awake Is family present? Yes: Daughter Equipment in Use Specialty Bed Safety Call Light Within Reach Bed Position Low Bed Exit Alarm Fall Precautions Phone Within Reach Bed Brake On Side Rails Up X2 Are the Floors Free From Trip Hazards? Yes Is the Room Free From Clutter? Yes Turn and Postion Bedrest No Turn Q 2HR No Patient Position Left Side Saline lock insertion/management Start: 12/23/16 20: 30 Freq: .ONCE Status: Complete Document 12/23/16 21:02 [facility] (Rec: 12/23/16 21:03 [facility] [id number]) IV Insertion/Site Assessment IV Attempt 1 Successful Successful Blood drawn and sent to Lab Yes Right Antecubital IV Established LINOTYPER No Date of Insertion 12/23/16 Time of Insertion 21:02 Reason for IV Insertion Replace Lost Fluids Maintain Electrolyte Balance Provide Access for IV Medication(s) Provide Access for Blood IV Catheter Type Peripheral IV Gauge (gauge) 20 Site Observation Patent Dressing Applied Window Dressing Dry/Intact Patient Tolerance Tolerated Well Sepsis Screening Start: 12/23/16 22: 57 Freq: Q8H Status: Active Document 12/23/16 23:10 MJW (Rec: 12/23/16 23:25 MJW [id number]) Sepsis Screening Sepsis Infection Criteria Present suspected infection Sepsis SIRS Criteria WBC > 12k or < 4k or bands > 10% Sepsis Screen No Definite Risk Sepsis Action Taken no action required Skin Risk Assessment Scale Start: 12/23/16 22: 57 Freq: Q12H Status: Active Document 12/23/16 23:10 MJW (Rec: 12/23/16 23:25 MJW [id number]) Skin Risk Assessment Scale Moisture Risk Occasionally Moist Sensory Perception Slightly Limited Activity Risk Walks Occasionally Mobility Risk Slightly Limited Nutrition Risk Probably Inadequate Friction & Shear Risk Potential Problem Skin Risk Total Score (points) 16 System Review Start: 12/23/16 22: 57 Freq: Q8H Status: Active Document 12/23/16 23:10 MJW (Rec: 12/23/16 23:25 MJW [id number]) Pain Assessment Pain Present Reports Pain Abdomen Pain Intensity 7 Scale Used Numeric (1 - 10) Pain Intervention Declined Neurological Assessment Eye Opening Spontaneous Motor Obeys Commands Verbal Oriented Coma Scale Total 15 Neurologic Status Alert Patient Orientation Person Place Time Arousable To Name Speech Pattern Normal rate Normal rhythm Normal tone Appropriate Clear Coherent Patient Behavior Appropriate Cooperative Mood Description Calm Relaxed Sensory Hard of Hearing All Four Limbs Strength Mild Weakness 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 Strength Equal Push/Pull Equal Numbness/Tingling No Facial Symmetry Symmetrical Cardiovascular Assessment Signs and Symptoms Abdominal Bloating Extreme Fatigue Heart Sounds S1 & S2 Pulse Rhythm Regular Jugular Vein Distention None Capillary Refill < 3 Seconds Circulatory Tenderness Description None Right Radial 2+ Left Radial 2+ Right Dorsalis Pedis 2+ Left Dorsalis Pedis 2+ Mechanical Prophylaxis No Respiratory Assessment Respiratory Symptoms Dry Cough Effort Normal for Patient Spontaneous Non-Labored Depth Normal Respiratory Pattern Regular Chest Shape Normal Expansion Symmetrical All Lung [place] Clear Oxygen Delivery Method Room Air Cough Description Voluntary Non-Productive Dry Cough Frequency Intermittent Sputum Amount None Gastrointestinal Assessment Abdomen Description Soft Non-Tender Distended 3 or more loose stools, in less than 24 No hours Nausea/Vomiting Presence None All Four Quadrants Active Bowel Diversion Stoma Assessment Right Lower Abdomen Stoma Appearance Beefy Red Collection Device Drainable Pouch Lynda-Stomal Surrounding Tissue Sensation No Symptoms Description Genitourinary Assessment Genitourinary Symptoms None Voiding Method Nephrostomy Tubes Urine Appearance Clear Color Bright Yellow Odor Normal Bladder Distention None Suprapubic Tenderness with Palpation No Integumentary Assessment Nail Bed Appearance [place] Temperature Warm Moisture Dry Turgor Normal Color Normal All Pressure Points Assessed Yes Evidence of Incision/Wounds/Breakdown No Mucous membranes moist, pink and intact Yes Oral Cavity Normal Musculoskeletal Assessment Musculoskeletal Symptoms Generalized Weakness Muscle Weakness Teaching Record Start: 12/23/16 22: 57 Freq: Q12H Status: Active Document 12/23/16 23:10 MJW (Rec: 12/23/16 23:25 MJW [id number]) Teaching Record: General Education Topics Hospital Environment Diet Response Verbalize understanding Methods Discussion Recipient Patient Family Education Provided: Details Explained admission paperwork Thrombosis Risk Factor Assessment Start: 12/23/16 22: 57 Freq: .ONCE Status: Active Document 12/23/16 22:58 MJW (Rec: 12/23/16 23:08 MJW [id number]) Thrombosis Risk Factor Assessment Each Risk Factor Represents 2 Points Age 60 - 74 years Malignancy (present or previous) Other congenital or acquired No thrombophilia - If yes, enter Type in comment Total Risk Factor Score 4 Risk Level Higher Risk Triage Start: 12/23/16 19: 30 Freq: Status: Complete Document 12/23/16 19:30 [facility] (Rec: 12/23/16 19:32 [facility] [id number]) Triage Chief Complaint triage ED Abdominal Pain Patient Stated Complaint nephrostomy tube came out YENNY 3 Onset (ago) day(s) General Appearance alert in no apparent distress Work Related Injury? No Mode of arrival ambulatory Source patient Limitations no limitations Ebola Risk: Travel/Contact With Anyone No From Affected Area/s Has Patient Experienced Ebola Symptoms No Temperature (97.6 F-99.6 F) 97.4 F L Temperature Source Oral Pulse Rate 77 Respiratory Rate 16 Blood Pressure 168/83 O2 Sat by Pulse Oximetry (95-100) 93 L Oxygen Delivery Room Air Height 1.85 m Weight 65.317 kg Weight Measurement Method Stated by Patient Pain Scale 0 Pain Scale Used Standard (1-10) Medical history cancer diabetes hypertension kidney stones Additional medical history PMH bladder cancer Male surgical history cholecystectomy prostatectomy Additional surgical history PMH nephrostomy urostomy Psychiatric history no psych history Smoking Status Never smoker Smokeless Tobacco Status Yes Alcohol Use none Drug Use none Patient resides with/at Spouse Safety Concerns Feels Safe At This Time Do you currently feel hopless, have No thoughts of self harm, or thoughts of harming others History of fall in last 14 days? No Vital Signs Assessment Start: 12/23/16 20: 30 Freq: PROTOCOL Status: Active Document 12/23/16 22:14 [facility] (Rec: 12/23/16 22:14 [facility] [id number]) ED Vital Signs Pain Reported No Pain Reported Blood Pressure 122/61 Blood Pressure Location Left Arm Source Automatic Cuff Vital Signs Assessment Start: 12/23/16 22: 57 Freq: Q4H Status: Active Document 12/23/16 23:03 LMO (Rec: 12/23/16 23:05 LMO [id number]) Vital Signs with MEWS Temperature (97.6 F-99.6 F) 98.1 F Temperature Source Oral Pulse Rate 100 Respiratory Rate 16 Pulse Oximetry (95-100) 94 L Oxygen Delivery Room Air Blood Pressure 130/72 Blood Pressure Location Left Arm Source Automatic Cuff Position HOB Elevated Neuro Status *recalled from last Alert documentation MEWS Score 1 Wound Assessment Start: 12/23/16 22: 57 Freq: Q8H Status: Active Document 12/23/16 23:10 MJW (Rec: 12/23/16 23:25 MJW [id number]) Drains Right Lower Back Tube Type Nephrostomy Drain Drainage Description Yellow Drain Drainage Odor None/Absent Discharge Information ED Provider: Nina Torres Status: Departed Time Seen by Provider: 12/23/16 19:43 Condition: Fair Triaged At: Other ED Providers: Gera Mendenhall,Gera Taveras,Evans Rea,Garrick Cueto,Jin Wakefield,Pamela Obando,Yg Duffy Emergency Discharge Date/Time: 12/23/16 22:46 Emergency Discharge Disposition: Admitted As Inpatient Clinical Impression FATMATA (acute kidney injury) Nephrostomy tube displaced UTI (urinary tract infection) Emergency Discharge Comment: Admit Intervention Last Done ED Abdominal Pain Assessment 12/23/16 19:54 Query Result Abdominal Pain Improves With Nothing Abdominal Pain Worsens With Nothing Abdominal Pain Associated Symptoms Denies Other Symptoms Level Of Consciousness Awake Alert Appropriate Patient Orientation Person Place Time Name Age Date of Day of Month Day of Week Month Year Time of Day Skin Temperature Warm Skin Moisture Dry Skin Turgor Elastic Capillary Refill < 3 Seconds Respiratory Depth Normal Respiratory Effort Normal for Patient Spontaneous Non-Labored Abdomen Description Round Distended Nausea/Vomiting Presence None Voiding Method Nephrostomy Tubes ED Comment Pt reports his nephrostomy bag got pulled out about 1 hour LINOTYPER. Pt denies pain, ROBB, or any other symptoms. ED Discharge Assessment 12/23/16 22:31 Query Result ED Discharge Disposition Admitted ED Condition on Discharge Fair Med Rec/Patient Phamracy completed? Yes ED Admit to 3A Bed assigned 3A46 Transported by instructional media services technician Transported with IV Report given to Nurse Care transferred to SH[facility] Calle Information relayed patient's care treatments medications given condition recent/anticipated change Clinical Documentation Summary Provided Yes Severity scale (1-10) 3 Pain Scale Used FLACC (1-10) Blood Pressure 121/66 Heart rate 96 Respiratory Rate 16 Oxygen Delivery Room Air Pulse Oximetry Reading 93 Critical Care Minutes 0 Observation Discharge Date/Time: Observation Discharge Disposition: Observation Discharge Comment: Instructions: Stand-Alone Forms: Prescriptions: Visit Report - Forms: - Referrals: Cuco Galeano MD (Primary Care Provider)
[2016-12-24] MEDS: Melatonin 3 MG TABLET PO SCH ×2 (01:59→22:28)
[2016-12-24 02:11] LABS: Hemoglobin A1C 6.1 %
[2016-12-24 02:12] LABS: Calcium 10.6 mg/dL (8.6-10.8)
[2016-12-24 02:16] LABS: Albumin 2.5 g/dL (3.5-5.0); Albumin/Globulin Ratio 0.8 (1.1-2.2); Bilirubin,Total 0.7 mg/dL (0.2-1.2); Calcium 10.6 mg/dL (8.6-10.8); Chol/HDL Ratio 4.6 (0-4.9); Globulin 3.3 g/dL (2.4-3.5); Magnesium 2.3 mg/dL (1.6-2.6); Phosphorous 5.1 mg/dL (2.3-4.7); Total Protein 5.8 g/dL (6.0-8.3)
[2016-12-24 02:38] LABS: Thyroid Stimulating Hormone 2.249 mcIU/mL (0.350-4.840)
[2016-12-24] MEDS ORDERED: Calcium Gluconate 1,000 MG in D5% in Water 100 ML IVPB ONE (02:39)
[2016-12-24] MEDS ORDERED: Insulin Human Regular 10 UNIT in 0.9 % Sodium Chloride 10 ML IV STA (02:39)
[2016-12-24] MEDS ORDERED: *HR* Dextrose 50 % in Water (Syg) 50 ML SYRINGE IVP STA (02:39)
[2016-12-24] MEDS: Sodium Bicarbonate 100 MEQ in 0.45 % Sodium Chloride 1,000 ML IVC SCH ×2 (03:46→17:20)
[2016-12-24] MEDS ORDERED: Albuterol 2.5 MG/3 ML NEBULIZER IH PRN (06:05)
[2016-12-24] MEDS ORDERED: Benzonatate 100 MG CAPSULE PO PRN (06:13)
[2016-12-24] MEDS ORDERED: methylPREDNISolone 125 MG/2 ML VIAL IVP STA (06:13)
[2016-12-24] MEDS ORDERED: Bumetanide 1 MG/4 ML VIAL IVP ONE (06:23)
[2016-12-24 06:32] LABS: VBG HCO3 18.8 mEq/L (21-27); VBG PH 7.39 pH Units (7.32-7.42)
[2016-12-24 06:44] LABS: Calcium 10.5 mg/dL (8.6-10.8); Potassium 5.5 mEq/L (3.5-4.5)
[2016-12-24] MEDS ORDERED: Azithromycin 500 MG in D5% in Water 250 ML IVPB SCH (07:00)
[2016-12-24] MEDS ORDERED: Insulin LISPRO 300 UNITS/3 ML VIAL SQ SCH ×3 (07:30→21:00)
[2016-12-24] MEDS: Ipratropium/Albuterol Neb 3 ML IH SCH ×4 (07:33→22:36)
[2016-12-24] MEDS ORDERED: Perflutren Lipid Microsphere 1.3 ML in 0.9 % Sodium Chloride 8.7 ML IVP ONE (07:33)
[2016-12-24] MEDS: Piperacillin/Tazobactam 3.375 GM in D5% in Water (Mini-Bag+) 100 ML IVPB SCH ×2 (08:23→15:56)
[2016-12-24] MEDS: Megestrol Acetate 400 MG/10 ML UDC PO SCH (08:30)
[2016-12-24] MEDS: Metoprolol XL (24 HR) Succ 25 MG TAB.ER.24H PO SCH (08:31)
[2016-12-24] MEDS: Pantoprazole 40 MG VIAL IVP SCH (08:31)
[2016-12-24] MEDS: Cholecalciferol (D-3) 1,000 UNIT TABLET PO SCH (08:31)
[2016-12-24] MEDS: Insulin LISPRO 300 UNITS/3 ML VIAL SQ SCH ×2 (11:37→15:59)
[2016-12-24] MEDS ORDERED: MethylPREDNISolone 40 MG/ML VIAL IVP SCH (12:00)
--- NOTE | 2016-12-24 12:00 | ECHO - Doppler Report ---
Limited Echo with Saline and Imaging Enhancement Agent Name: Escobar Black Date of Study: 12/24/2016 Date: 1945 Ht: 73.0 in Medical Record#: [id number] Age: 71 Wt: 233.0 lb Gender: Male BSA: 2.3 Order #: [id number] Location: [facility] Room #: 3A46 Reading Physician: Kirsten Barnard DO Engineering Mechanic: Andi Urrutia RVT, [facility] Ordering Physician: Mickey Abel MD Primary Physician: Cuco Galeano MD Indications: dyspnea Impressions: Technically challenging study with suboptimal windows. With use of Definity, LV systolic function is normal, EF 65%. RV is difficult to evaluate. Valves were not well evaluated on this study. Left Ventricular Wall Motion: Rest Echo Findings All wall segments showed normal motion. Findings: Study Quality * Technically sub-optimal due to body habitus. ECG Findings * Normal sinus rhythm. Left Ventricle * Grossly normal LV systolic function. * Mild left ventricular diastolic dysfunction. * LVEF 65%. * Normal LV chamber size, wall thickness and function. * Definity echo contrast was used. Right Ventricle * RV is not well evaluated. Left Atrium * Normal left atrial size. Right Atrium * Normal right atrial size. Interatrial Septum * Interatrial septum not well evaluated. History Hypertension Diabetes Hypercholesteremia 12/04/2015 a Previous Echo was performed. Contrast: Definity 1.3 ml in 8.7 ml of saline ml. Measurements: BP: 116/ 65 2D Normal Values LA volume: 42 Mitral Valve Peak E:.67 m/sec Peak A:.85 m/sec E/A Ratio:0.8 Peak E' Lat Brandin:5.33 cm/s Peak E' Med Brandin:7.83 cm/s E/E' Lat Ratio:12.6 E/E' Med Ratio:8.5 Updated by Kirsten Barnard on 12/24/2016 11:54:42 AM electronically signed on 12/24/2016 11:55:24 AM with status of Final Wall Motion Barnhart: 1=Normal, 2=Hypokinesis, 3=Akinesis, 4=Dyskinesis, 5=Aneurysmal, 6=Hyperkinetic, X=Not Visualized (Blank)=Missing
[2016-12-24] MEDS ORDERED: 0.9 % Sodium Chloride 500 ML ONE ×2 (12:30→12:46)
--- NOTE | 2016-12-24 13:52 | IR Procedure Note ---
Date of procedure: 12/24/16 Consent Obtained: Written consent Timeout: Correct patient and procedure verified, Correct site verified, Time out performed, Skin prep completed Indications: Left nephrostomy pull. Old right nephrostomy needs changing Procedure Performed: New right nephrostomy, Exchange of left nephrostomy Site/Technique: Bilateral nephrostomy tubes Results/Findings: Adequate placement Estimated blood loss (cc): 0 Complications: None; Tolerated procedure well Post Procedure Treatment Plan: [place] drainage
[2016-12-24] MEDS: *HR* OxyCODONE Immed Rel 5 MG TABLET PO PRN (19:45)
[2016-12-24] MEDS ORDERED: Insulin DETEMIR 100 UNIT/ML X5UNITS SQ SCH (21:00)
[2016-12-24] MEDS ORDERED: 0.9 % Sodium Chloride 1,000 ML ONE (22:05)
[2016-12-24 22:53] LABS: Basophils # 0.1 K/mcL (0.0-0.2); Basophils % 0.3 %; Eosinophils # 0.1 K/mcL (0.0-0.6); Eosinophils % 0.4 %; Hematocrit 35.6 % (37.5-50.1); Immature Granulocytes % 2.5 % (0-4); Lymphocytes # 0.4 K/mcL (0.6-4.6); Lymphocytes % 1.9 %; Mean Corpuscular HGB Conc 32.6 g/dL (31.6-35.5); Mean Corpuscular Hemoglobin 27.6 pg (28.0-33.3); Mean Corpuscular Volume 84.6 fL (83.0-100.0); Monocytes # 1.7 K/mcL (0.0-1.3); Monocytes % 7.3 %; Neutrophils # 19.8 K/mcL (1.6-8.9); Platelet Count 274 K/mcL (140-400); Red Blood Count 4.21 M/mcL (4.19-5.50); Segmented Neutrophils % 87.6 %
[2016-12-24 22:54] LABS: Hemoglobin 11.6 g/dL (12.9-16.9)
[2016-12-24 23:05] LABS: Potassium 5.5 mEq/L (3.5-4.5)
[2016-12-24 23:17] LABS: ABG Base Excess -6.9 mEq/L (-2.0 to 3.0); ABG HCO3 18.5 mEQ/L (21-27); ABG Oxygen Saturation 85 % (95-98); ABG PCO2 36 mmHg (35-45); ABG PH 7.32 pH Units (7.32-7.45); ABG PO2 55 mmHg (85-104); ABG TCO2 19.6 mEq/L (20-26)
[2016-12-24 23:19] LABS: Blood Gas FiO2 21 %
--- NOTE | 2016-12-24 23:42 | Event Note ---
Date of Encounter: 12/24/16 Time of Encounter: 22:25 Called to see patient for low BP and pain control. Pt had nephrostomy tubes placed today for UTI with obstruction due to bladder CA with Mets. Patient looks intravascularly dry. I ordered bolus x 2, then MIV. BP improved after first bolus; 2nd bolus starting now. ABG stable. If patient needs more aggressive hemodynamic support, I will transfer patient to 2N or ICU. I discussed with patient and daughters. He is FULL CODE for now -- patient verbalized.
[2016-12-24] MEDS ORDERED: 0.9 % Sodium Chloride 1,000 ML IVC SCH (23:45)
[2016-12-25] MEDS ORDERED: 0.9 % Sodium Chloride 1,000 ML IVC ONE
[2016-12-25] MEDS: 0.9 % Sodium Chloride 1,000 ML IVC SCH ×3 (00:21→21:37)
[2016-12-25] MEDS: Piperacillin/Tazobactam 3.375 GM in D5% in Water (Mini-Bag+) 100 ML IVPB SCH ×4 (00:24→23:41)
--- NOTE | 2016-12-25 02:02 | Event Note ---
Date of Encounter: 12/25/16 Time of Encounter: 01:59 Called by RN with update. Despite IVF boluses, BP remains low (95/49) with no to minimal UOP. Pt also hypoxemic. Will transfer to ICU for closer monitoring , hemodynamic support, and possible intervention (if necessary).
[2016-12-25] MEDS ORDERED: Albumin Human 5% 25.0 GM/500 ML VIAL ONE (03:28)
[2016-12-25] MEDS ORDERED: *HR* Metoprolol 5 MG/5 ML VIAL IVP PRN (03:47)
--- NOTE | 2016-12-25 04:05 | Event Note ---
Date of Encounter: 12/25/16 Time of Encounter: 03:59 Called to see patient in ICU for Atrial Fibrillation with RVR and low BP. Patient asymptomatic; lungs clear with diminished breath sounds in bases. I ordered Albumin in addition to his MIV for intavascular volume. I'll try some IV Lopressor for HR control. Will repeat ABG and follow labs. I'll ask commercial driver's license driver to assume care in ICU. Prognosis, unfortunately, remains grim given the extent of his metastatic disease.
[2016-12-25 04:30] LABS: Basophils # 0.1 K/mcL (0.0-0.2); Basophils % 0.2 %; Eosinophils # 0.1 K/mcL (0.0-0.6); Eosinophils % 0.6 %; Hematocrit 32.8 % (37.5-50.1); Hemoglobin 10.7 g/dL (12.9-16.9); Immature Granulocytes % 2.7 % (0-4); Lymphocytes # 0.4 K/mcL (0.6-4.6); Mean Corpuscular HGB Conc 32.6 g/dL (31.6-35.5); Mean Corpuscular Hemoglobin 27.6 pg (28.0-33.3); Mean Corpuscular Volume 84.5 fL (83.0-100.0); Mean Platelet Volume 9.2 fL (9.4-12.4); Monocytes # 2.2 K/mcL (0.0-1.3); Monocytes % 10.1 %; Platelet Count 263 K/mcL (140-400); Red Blood Count 3.88 M/mcL (4.19-5.50); Segmented Neutrophils % 84.4 %
[2016-12-25] MEDS: Ipratropium/Albuterol Neb 3 ML IH SCH ×4 (04:45→21:55)
[2016-12-25 04:47] LABS: Calcium 9.1 mg/dL (8.6-10.8); Magnesium 1.9 mg/dL (1.6-2.6); Potassium 5.1 mEq/L (3.5-4.5)
[2016-12-25 04:50] LABS: Albumin 2.5 g/dL (3.5-5.0); Bilirubin,Total 0.5 mg/dL (0.2-1.2); Calcium 9.2 mg/dL (8.6-10.8); Globulin 2.6 g/dL (2.4-3.5); Total Protein 5.1 g/dL (6.0-8.3)
[2016-12-25 04:52] LABS: ABG Base Excess -7.1 mEq/L (-2.0 to 3.0); ABG HCO3 18.7 mEQ/L (21-27); ABG Oxygen Saturation 96 % (95-98); ABG PCO2 38 mmHg (35-45); ABG PO2 89 mmHg (85-104); ABG TCO2 19.9 mEq/L (20-26)
[2016-12-25 04:53] LABS: Blood Gas FiO2 34 %
[2016-12-25] MEDS ORDERED: Ringers Solution, Lactated 1,000 ML IVC ONE (08:54)
[2016-12-25] MEDS ORDERED: Ringers Solution, Lactated 1,000 ML ONE (08:56)
[2016-12-25] MEDS: Megestrol Acetate 400 MG/10 ML UDC PO SCH (09:02)
[2016-12-25] MEDS: Pantoprazole 40 MG VIAL IVP SCH (09:02)
[2016-12-25] MEDS: Insulin LISPRO 300 UNITS/3 ML VIAL SQ SCH ×2 (09:03→12:52)
[2016-12-25] MEDS: Cholecalciferol (D-3) 1,000 UNIT TABLET PO SCH (09:04)
[2016-12-25] MEDS: Metoprolol XL (24 HR) Succ 25 MG TAB.ER.24H PO SCH (09:05)
[2016-12-25] MEDS: *HR* OxyCODONE Immed Rel 5 MG TABLET PO PRN (10:02)
--- NOTE | 2016-12-25 11:17 | Pulmonology Consult Note ---
Date of Encounter: 12/25/16 Time of Encounter: 11:15 Assessment and Plan (1) Shock Current Visit: Yes Status: Acute Multifactorial in etiology. There may be a component of septic shock with a urinary source. A. fib with RVR may also be contributing to hypotension. He appears intravascularly volume deplete due to dehydration and low protein state. * Ultimately, further intervention such as central line and vasopressors are dependent upon further goals of care discussion with the patient and family * Continue resuscitative measures with intravenous albumin and IV fluids * Hypotension overall fairly asymptomatic, lactate honestly elevated at 2.9 and trending downward from 3.9 (2) Acute on chronic renal failure Current Visit: Yes Status: Acute Multifactorial and due to urinary obstruction status post nephrostomy tube exchange, ATN/hypoperfusion from shock, and intravascular volume depletion. We will continue to trend urine output and Chem-7 as we resuscitate. (3) Atrial fibrillation with RVR Current Visit: Yes Status: Acute Difficult rate control in light soft blood pressures. Depending on goals of care, we could consider placing a central line and beginning phenylephrine and diltiazem drip. He is fairly asymptomatic with his tachycardia and hypotension. (4) UTI (urinary tract infection) Current Visit: Yes Status: Acute Continue Zosyn and follow culture data. Qualifiers: Urinary tract infection type: site unspecified Hematuria presence: with hematuria Qualified Code(s): N39.0 - Urinary tract infection, site not specified; R31.9 - Hematuria, unspecified (5) Metastatic carcinoma of the bladder Current Visit: Yes Status: Chronic Widely metastatic disease. Poor functional status and not a candidate for further chemotherapy. (6) Full code status Current Visit: Yes Status: Acute I discussed goals of care with the patient and his . They would like me to hold off on further invasive measures as they discussed possible transition to hospice care. Will consult palliative care medicine for further evaluation. He is hospice appropriate in my opinion. The family is concerned about his medical needs and the ability to take him home. Inpatient hospice would be a reasonable avenue. History of Present Illness Consult date: 12/25/16 Requesting physician: Conner Curry Reason for consult: other (Shock) Chief complaint: Shock History of present illness: 71-year-old white male with a medical history significant for metastatic bladder cancer who originally presented for evaluation of a malfunctioning nephrostomy tube. Of note, the patient has been intermittently confused and is extremely hard of hearing. Therefore, was unable to obtain a full history and review of systems. Information was obtained from the medical record and in discussion with hospital staff. The nephrostomy tube was exchanged on 12/24/2016. Since that time, the patient has decompensated. Overnight last night the patient was in A. fib with RVR with associated hypotension. He also has difficult to control abdominal pain related to his metastatic disease. He was transferred to the ICU overnight and given resuscitative fluids. 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 Cystectomy with ileal conduit. Radical cystoprostatectomy.) - Social History Smoking Status: Never smoker Smokeless Tobacco Status: Yes Alcohol use: none Drug use: none - Family History Father Hx Family Cardiac Disorders: Yes (Hypertension) Hx Family Cancer: Yes (Pancreatic Cancer) Medications and Allergies Insulin ASPART [NovoLOG] 4 - 6 unit SQ TIDWM 06/25/15 [History] Insulin Glargine,Hum.rec.anlog [Lantus Solostar] 20 unit SQ BID 06/25/15 [ History] Losartan Potassium [Cozaar] 50 mg PO DAILY 12/12/16 [History] Melatonin [Melatin] 3 mg PO HS 12/12/16 [History] Promethazine [Phenergan] 25 mg PO Q6HR PRN 12/12/16 [History] Cholecalciferol (Vitamin D3) [Vitamin D] 2,000 unit PO DAILY 12/23/16 [History] Docusate Sodium [Colace] 100 mg PO BID PRN #30 capsule 12/23/16 [Rx] FentaNYL PATCH [Duragesic] 12 mcg TD Q72H #5 patch.td72 12/23/16 [Rx] Megestrol Acetate [Megace] 400 mg PO DAILY 12/23/16 [History] Metoprolol XL (24 HR) Succ [Toprol XL] 25 mg PO DAILY 12/23/16 [History] Ondansetron HCl [Zofran] 4 mg PO Q6H PRN 12/23/16 [History] Oxycodone HCl [Oxaydo] 5 mg PO Q6H PRN #60 tablet.orl 12/23/16 [Rx] Polyethylene Glycol 3350 [MiraLAX Powder Bulk 17.9 Oz] 1 scoop PO DAILY #510 gm 12/23/16 [Rx] Allergies No Known Allergies Allergy (Verified 12/23/16 19:32) ROS unobtainable: due to mental status, other ([place]) Physical Examination Vital Signs: Vital Signs, Last 4 Hours Temp Pulse Resp BP Pulse Ox 12/25/16 10:00 119 19 95/51 95 12/25/16 09:00 117 16 87/45 95 12/25/16 08:20 97.7 F 12/25/16 08:00 108 25 72/63 93 L General: Chronically ill-appearing, increased work of breathing at rest Eyes: nonicteric ENT: oropharynx dry Neck: supple, no lymphadenopathy Lungs: Coarse bilateral breath sounds Cardiovascular: regular rate and rhythm Gastrointestinal: Distended with diffuse tenderness to palpation Integumentary: normal Extremities: no cyanosis, no edema Musculoskeletal: no deformities Neuro: Intermittently confused but overall non-focal exam Psych: mood appropriate, affect normal Results - Laboratory Findings CBC and BMP: 12/25/16 04:17 12/25/16 04:17 ABG ABG pH 7.30 pH Units (7.32-7.45) L 12/25/16 04:41 ABG pCO2 38 mmHg (35-45) 12/25/16 04:41 ABG pO2 89 mmHg (85-104) 12/25/16 04:41 ABG O2 Saturation 96 % (95-98) 12/25/16 04:41 PT/INR, D-dimer PT 15.2 Seconds (9.4-12.1) H 12/23/16 21:02 Abnormal lab findings: Abnormal lab results WBC 21.3 K/mcL (4.3-11.1) H 12/25/16 04:17 RBC 3.88 M/mcL (4.19-5.50) L 12/25/16 04:17 Hgb 10.7 g/dL (12.9-16.9) L 12/25/16 04:17 Hct 32.8 % (37.5-50.1) L 12/25/16 04:17 MCH 27.6 pg (28.0-33.3) L 12/25/16 04:17 RDW 15.0 % (11.5-14.5) H 12/25/16 04:17 MPV 9.2 fL (9.4-12.4) L 12/25/16 04:17 Neutrophils # 18.0 K/mcL (1.6-8.9) H 12/25/16 04:17 Lymphocytes # 0.4 K/mcL (0.6-4.6) L 12/25/16 04:17 Monocytes # 2.2 K/mcL (0.0-1.3) H 12/25/16 04:17 PT 15.2 Seconds (9.4-12.1) H 12/23/16 21:02 APTT 40.7 Seconds (26.0-36.0) H 12/23/16 21:02 ABG pH 7.30 pH Units (7.32-7.45) L 12/25/16 04:41 ABG HCO3 18.7 mEQ/L (21-27) L 12/25/16 04:41 ABG Total CO2 19.9 mEq/L (20-26) L 12/25/16 04:41 ABG Base Excess -7.1 mEq/L (-2.0 to 3.0) L 12/25/16 04:41 VBG pCO2 31 mmHg (41-51) L 12/24/16 06:24 VBG pO2 125 mmHg (25-40) H 12/24/16 06:24 VBG HCO3 18.8 mEq/L (21-27) L 12/24/16 06:24 Sodium 123 mEq/L (136-145) L 12/25/16 04:17 Potassium 5.0 mEq/L (3.5-4.5) H 12/25/16 04:17 Chloride 95 mEq/L (98-109) L 12/25/16 04:17 Carbon Dioxide 16 mEq/L (19-29) L 12/25/16 04:17 BUN 110 mg/dL (8-26) H 12/25/16 04:17 Creatinine 3.54 mg/dL (0.72-1.25) H 12/25/16 04:17 Est GFR ( Amer) 21 (> 60) L 12/25/16 04:17 Est GFR (Non-Af Amer) 17 (> 60) L 12/25/16 04:17 BUN/Creatinine Ratio 31 (6-26) H 12/25/16 04:17 Glucose 149 mg/dL (70-99) H 12/25/16 04:17 POC Glucose 113 (58-89) H 12/25/16 07:50 Hemoglobin A1c 6.1 % (-5.6) H 12/24/16 01:47 Lactic Acid 2.9 mmol/L (0.5-2.2) H 12/25/16 04:17 Ionized Calcium 1.47 mmol/L (1.15-1.35) H 12/24/16 06:24 Phosphorus 5.1 mg/dL (2.3-4.7) H 12/24/16 01:47 AST 68 Units/L (5-34) H 12/25/16 04:17 Alkaline Phosphatase 156 Units/L (38-126) H 12/25/16 04:17 C-Reactive Protein 93 mg/L (Less than 5) H 12/24/16 01:47 Serum Total Protein 5.1 g/dL (6.0-8.3) L 12/25/16 04:17 Albumin 2.5 g/dL (3.5-5.0) L 12/25/16 04:17 Albumin/Globulin Ratio 1.0 (1.1-2.2) L 12/25/16 04:17 Triglycerides 160 mg/dL (< 150) H 12/24/16 01:47 VLDL Cholesterol, Calc 32 mg/dL (< 31) H 12/24/16 01:47 HDL Cholesterol 25 mg/dL (40-59) L 12/24/16 01:47 Urine Clarity Turbid (Clear) A 12/23/16 20:49 Urine Protein >=300 mg/dL (Neg-Trace) H 12/23/16 20:49 Urine Ketones Trace mg/dL (Negative) H 12/23/16 20:49 Urine Blood Large (Negative) H 12/23/16 20:49 Urine Bilirubin Small (Negative) H 12/23/16 20:49 Ur Leukocyte Esterase Moderate (Negative) H 12/23/16 20:49 Urine Microscopic RBC 15-30 per hpf (0-3) H 12/23/16 20:49 Urine Microscopic WBC TNTC per hpf (0-3) H 12/23/16 20:49 Ur Squamous Epith Cells Many per lpf (None-Few) H 12/23/16 20:49 Urine Bacteria Many per hpf (None-Few) H 12/23/16 20:49 Urine Yeast Few per hpf (None Seen) H 12/23/16 20:49 Ur Culture Indicated? YES (NO) A 12/23/16 20:49 - Microbiology Findings Microbiology Findings: Microbiology, Last 48 Hours 12/24/16 01:47 Blood Culture - Preliminary Peripheral Venipuncture No growth. - Clinical Findings Intake & Output: Intake & Output 12/24/16 12/25/16 12/25/16 23:59 07:59 15:59 Intake Total 1665 / 1665 1600 / 1600 1500 / 1500 Output Total 60 / 60 Balance 1605 / 1605 1600 / 1600 1500 / 1500 Consult Discharge Plan - Plan Referrals: Cuco Galeano MD [Primary Care Provider] -
[2016-12-25] MEDS ORDERED: Hydrocortisone Sodium Succ 100 MG/2 ML VIAL IVP SCH (12:00)
--- NOTE | 2016-12-25 12:42 | Electrocardiograph Report ---
[place] [id number] Test Date: 2016-12-23 Pat Name: Escobar Black Department: 103 Room: [facility] Gender: M Wood Tool Maker: : 1945 Requested By: Divine Spence Order Number: [id number] Reading MD: Kirsten Barnard Measurements Intervals [place] Rate: 95 P: 28 TN: 144 QRS: 20 QRSD: 95 T: 33 QT: 308 QTc: 360 Interpretive Statements SINUS RHYTHM NONSPECIFIC ST \T\ T-WAVE ABNORMALITY Electronically Signed On 12-25-2016 12:41:01 EDT by Kirsten Barnard
[2016-12-25] MEDS: *HR* HYDROmorphone (PF) 1 MG/ML SYRINGE IVP PRN ×2 (12:48→21:47)
[2016-12-25] MEDS: Hydrocortisone Sodium Succ 100 MG/2 ML VIAL IVP SCH ×3 (12:48→23:42)
[2016-12-25] MEDS: Albumin 25% 25gram/100mL 25 GM/100 ML IV.SOLN IVPB SCH ×3 (12:48→23:39)
[2016-12-25] MEDS: Haloperidol Lactate 5 MG/ML VIAL IVP PRN ×2 (16:44→21:52)
[2016-12-25] MEDS: Melatonin 3 MG TABLET PO SCH (23:44)
[2016-12-26] MEDS: Ipratropium/Albuterol Neb 3 ML IH SCH (05:54)
[2016-12-26] MEDS: 0.9 % Sodium Chloride 1,000 ML IVC SCH (06:03)
[2016-12-26] MEDS: Hydrocortisone Sodium Succ 100 MG/2 ML VIAL IVP SCH (06:04)
[2016-12-26] MEDS: Albumin 25% 25gram/100mL 25 GM/100 ML IV.SOLN IVPB SCH (06:04)
[2016-12-26] MEDS: *HR* HYDROmorphone (PF) 1 MG/ML SYRINGE IVP PRN (06:05)
[2016-12-26 08:37] VITALS: BP 58/44
--- NOTE | 2016-12-26 09:53 | Event Note ---
Date of Encounter: 12/26/16 Time of Encounter: 09:50 Family meeting with the patient's spouse-Willy, daughter-Faith, step daughter- Vicky and grandchildren regarding goals of care. Decision was made to pursue comfort care and transition to hospice services. Patient will be admitted to [facility] services for general in-patient hospice care. Given his physical exam and rapid decline in health, he is not expected to survive long. Discussed case with hospice medical coding specialist and ICU team.
[2016-12-26] MEDS ORDERED: *HR* LORazepam 2 MG/ML VIAL IVP PRN (09:57)
[2016-12-26] MEDS ORDERED: Atropine Sulfate 1% 40 DROP/2 ML BOTTLE SL PRN (09:57)
--- NOTE | 2016-12-26 10:18 | Electrocardiograph Report ---
[place] [id number] Test Date: 2016-12-25 Pat Name: Escobar Black Department: 109 Room: [facility] Gender: Retort Firer: : 1945 Requested By: Ashley Johnson Order Number: [id number] Reading MD: Mark Mantilla MD Measurements Intervals [place] Rate: 130 P: SD: 0 QRS: 15 QRSD: 101 T: 161 QT: 263 QTc: 340 Interpretive Statements ATRIAL FIBRILLATION WITH RAPID VENTRICULAR RESPONSE NONSPECIFIC ST \T\ T-WAVE ABNORMALITY Electronically Signed On 12-26-2016 10:16:40 EDT by Mark Mantilla MD
--- NOTE | 2016-12-26 10:54 | Discharge Summary ---
<Jessica Gibbs - Last Filed: 12/26/16 10:52> Date of Encounter: 12/26/16 Time of Encounter: 10:52 - Discharge Diagnosis (1) Metastatic carcinoma of the bladder Priority: Primary Status: Chronic Comments: Patient has metastatic bladder cancer. He did have a malfunction of his nephrostomy tube. This was changed on . Patient has a decline in his mental capacity as well as physical state since he has been in the hospital. It was discussed with family of his poor prognosis and they are agreeable to place patient into hospice care. We will discharge patient from here to inpatient hospice. (2) Acute kidney injury superimposed on chronic kidney disease Priority: Primary Status: Acute - Discharge Medications Home Medications: Insulin ASPART [NovoLOG] 4 - 6 unit SQ TIDWM 06/25/15 [History] Insulin Glargine,Hum.rec.anlog [Lantus Solostar] 20 unit SQ BID 06/25/15 [ History] Losartan Potassium [Cozaar] 50 mg PO DAILY 12/12/16 [History] Melatonin [Melatin] 3 mg PO HS 12/12/16 [History] Promethazine [Phenergan] 25 mg PO Q6HR PRN 12/12/16 [History] Cholecalciferol (Vitamin D3) [Vitamin D] 2,000 unit PO DAILY 12/23/16 [History] Docusate Sodium [Colace] 100 mg PO BID PRN #30 capsule 12/23/16 [Rx] FentaNYL PATCH [Duragesic] 12 mcg TD Q72H #5 patch.td72 12/23/16 [Rx] Megestrol Acetate [Megace] 400 mg PO DAILY 12/23/16 [History] Metoprolol XL (24 HR) Succ [Toprol XL] 25 mg PO DAILY 12/23/16 [History] Ondansetron HCl [Zofran] 4 mg PO Q6H PRN 12/23/16 [History] Oxycodone HCl [Oxaydo] 5 mg PO Q6H PRN #60 tablet.orl 12/23/16 [Rx] Polyethylene Glycol 3350 [MiraLAX Powder Bulk 17.9 Oz] 1 scoop PO DAILY #510 gm 12/23/16 [Rx] Allergies/Adverse Reactions: Allergies No Known Allergies Allergy (Verified 12/23/16 19:32) - Impressions Patient laying in bed nonresponsive to verbal or painful stimuli. He had a nephrostomy tube changed on he was here and patient has declined ever since. Does have history of metastatic bladder cancer. Very poor prognosis. Family has discussed hospice care and is agreeable to discharge with hospice. Date of admission: 12/25/16 17:36 Primary care physician: Cuco Galeano MD Discharging clinician: Kalyn Arora Anticipated date of discharge: 12/26/16 - Patient Status Disposition: Hospice - Medical Facility Condition: Critical Functional capacity at discharge: bed bound Overall status at discharge: patient is not back to baseline - Discharge Instructions Follow Up With: Cuco Galeano MD [Primary Care Provider] - - Diet and Activity Activity: resume usual activities as tolerated Diet: advance to your usual diet - Hospital Course Hospital course: Mr. Black is a 71 year old male - Time Spent with Patient Total time spent providing and/or coordinating discharge services: Less than 30 minutes Physical Examination Vital Signs: Vital Signs, Last 4 Hours Pulse Resp BP Pulse Ox 12/26/16 08:15 103 12/26/16 07:00 116 14 58/44 92 L General appearance: lethargic, comatose Eyes: nonicteric ENT: oropharynx moist Neck: supple, no lymphadenopathy Effort: normal Inspection: normal Cardiovascular: regular rate and rhythm Gastrointestinal: normoactive bowel sounds, non-distended Integumentary: normal Extremities: no cyanosis Musculoskeletal: no deformities pupils equal and round, unable to assess due to mental status other (Not responsive to verbal or painful stimuli.) <Kalyn Arora - Last Filed: 12/26/16 16:17> Date of admission: 12/25/16 17:36 Primary care physician: Cuco Galeano MD - Hospital Course Hospital course: Mr. Black is a 71 year old male - Time Spent with Patient Total time spent providing and/or coordinating discharge services: - Attending Attestation I examined this patient and my medical decision-making was reviewed with the CORRECTION OFFICER/PA/Advanced Practice Nurse/Resident Physician. I agree with the documented findings, disposition and treatment plan as described except to the extent set forth below. Patient seen and examined before he . Patient was unresponsive and evidence of fluid retention. Patient had nephrostomies and palliative care was working with the family to transfer patient to hospice at home. Patient before he was discharged home.
--- NOTE | 2016-12-26 11:51 | Death Note ---
<GibbsJessica Holland - Last Filed: 12/26/16 11:49> Discharge Sum: Summary - Date and Time Date of admission: 12/25/16 17:36 Date of : 12/26/16 Time of : 11:38 - Summary Details: Patient has metastatic bladder cancer was admitted for a failed nephrostomy tube. This was replaced on his admission and patient is declining in health ever since. Patient's family chose today to withdraw care and place patient in hospice. - Additional Data Confirmation of as documented by pronouncing clinician: no pulse, no respirations, no heart sounds, pupils fixed and dilated Family: at bedside Attending/PCP notified?: No Attending physician: Ashley Johnson Was code activated?: No Autopsy requested?: No Discharge Sum: Diag - PCOD Probable Cause of : Cardiorespiratory arrest Discharge Sum: Prov - Provider Primary care physician: Cuco Galeano MD Admitting clinician: Ashley Johnson Pronouncing clinician: Jessica Gibbs - Attending Attestation Patient was admitted to the hospital for a failed nephrostomy tube. This was replaced during this hospital course. Patient's health has declined significantly since he has been in the hospital. Patient's family decided to place patient on hospice and withdraw care today. Patient was going to be moved but declined significantly after all measures were removed. He subsequently while still in the ICU. <Kalyn Arora - Last Filed: 12/26/16 16:40> Discharge Sum: Summary - Date and Time Date of admission: 12/25/16 17:36 - Additional Data Attending physician: Ashley Johnson Discharge Sum: Prov - Provider Primary care physician: Cuco Galeano MD - Attending Attestation I examined this patient and my medical decision-making was reviewed with the FRUIT THINNER MACHINE OPERATOR/PA/Advanced Practice Nurse/Resident Physician. I agree with the documented findings, disposition and treatment plan as described except to the extent set forth below. Please see previous note. Patient before he was discharged home. Family at the bedside and answered all their questions.
--- NOTE | 2016-12-26 11:55 | Palliative - Consult Note ---
Date of Encounter: 12/26/16 Time of Encounter: 09:30 - Assessment and Plan (1) Goals of care, counseling/discussion Current Visit: Yes Status: Acute Assessment and plan: Upon initial evaluation of the patient, he was unresponsive, respirations easy and unlabored, hypotensive, hypoxic, tachycardic. Discuss goals of care with the patient's spouse-Willy, as well as daughter-Faith and step daughter-Vicky, and grandchildren. Family members were all in agreement that comfort care would be his main priority. He will transition to [place] [facility] care for general inpatient hospice care given his frail/fragile condition. Discussed with hospice staff as well as ICU team. Update: Follow-up physical assessment and conversation with the patient's family. Mr. Black has developed agonal breathing and thready pulse. Medical Assembly services were offered, family at bedside. At 1138, the family alerted staff of the change in condition. Myself and the primary nurse responded. Mr. Black was found to be without apical pulse, respirations, pupils were fixed and dilated. Family present at bedside, his personal spiritual services contacted by family members. Updated ICU team including Drs. Gibbs and Ulysses. Also updated hospice services. (2) Airway clearance impairment Current Visit: Yes Status: Acute Assessment and plan: Atropine drops as needed. Discussed symptom management with patient's family. (3) Metastatic carcinoma of the bladder Current Visit: Yes Status: Chronic (4) Cancer associated pain Current Visit: Yes Status: Chronic Assessment and plan: Hydromorphone 1 mg every 2 hours as needed for pain. Adjust accordingly. Palliative-CN HPI - Data of Consult Patient: new to practice Consult date: 12/26/16 Requesting Physician: Ashley Johnson Primary Care Provider: Cuco Galeano MD - Consult Narrative Palliative Care/Comfort Measures: Palliative care Reason for consult: Goals of care, hospice discussion History of present illness: Mr. Black is a 71 year old male patient presented to [facility] after his nephrostomy tube became dislodged. Mr. Black was diagnosed with metastatic bladder cancer in the fall of 2016. He would go on to have TURBT per urology with placement of cystectomy with ileal conduit, and eventual radical cystoprostatectomy with placement of bilateral nephrostomy tubes. Mr. Black had been tolerating cancer treatments well up until just prior to his admission. His nephrostomy tubes replaced every 2 months and he had home health services assisting with care. Following admission, his left nephrostomy tube was replaced, and his right nephrostomy tube was changed. Fortunately, following surgery Mr. Black had a decline in his health. He became hypotensive, was transferred to the intensive care unit. He was felt to be septic related to urinary tract infection. He also developed atrial fibrillation with rapid ventricular rate. After meeting with the ICU team, the family has elected to pursue comfort care measures. The palliative care team was consulted to assist with goals of care planning, and hospice care. 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 Cystectomy with ileal conduit. Radical cystoprostatectomy.) - Social History Smoking Status: Never smoker Smokeless Tobacco Status: Yes Alcohol use: none Drug use: none - Family History Father Hx Family Cardiac Disorders: Yes (Hypertension) Hx Family Cancer: Yes (Pancreatic Cancer) Medications and Allergies Insulin ASPART [NovoLOG] 4 - 6 unit SQ TIDWM 06/25/15 [History] Insulin Glargine,Hum.rec.anlog [Lantus Solostar] 20 unit SQ BID 06/25/15 [ History] Losartan Potassium [Cozaar] 50 mg PO DAILY 12/12/16 [History] Melatonin [Melatin] 3 mg PO HS 12/12/16 [History] Promethazine [Phenergan] 25 mg PO Q6HR PRN 12/12/16 [History] Cholecalciferol (Vitamin D3) [Vitamin D] 2,000 unit PO DAILY 12/23/16 [History] Docusate Sodium [Colace] 100 mg PO BID PRN #30 capsule 12/23/16 [Rx] FentaNYL PATCH [Duragesic] 12 mcg TD Q72H #5 patch.td72 12/23/16 [Rx] Megestrol Acetate [Megace] 400 mg PO DAILY 12/23/16 [History] Metoprolol XL (24 HR) Succ [Toprol XL] 25 mg PO DAILY 12/23/16 [History] Ondansetron HCl [Zofran] 4 mg PO Q6H PRN 12/23/16 [History] Oxycodone HCl [Oxaydo] 5 mg PO Q6H PRN #60 tablet.orl 12/23/16 [Rx] Polyethylene Glycol 3350 [MiraLAX Powder Bulk 17.9 Oz] 1 scoop PO DAILY #510 gm 12/23/16 [Rx] Allergies No Known Allergies Allergy (Verified 12/23/16 19:32) ROS unobtainable: due to mental status Palliative Care-Exam - Constitutional Vitals: Temp Pulse Resp BP Pulse Ox 97.6 F 103 14 58/44 92 L 12/26/16 00:28 12/26/16 08:15 12/26/16 07:00 12/26/16 07:00 12/26/16 07:00 Exam: 71-year-old male patient, appearing chronically, unresponsive, respirations unlabored - Head Head Exam: Present: atraumatic - Eye Pupils: Present: PERRL - ENT ENT exam: Present: mucous membranes dry - Respiratory Respiratory exam: Present: rhonchi. Absent: accessory muscle use, respiratory distress - Expanded Respiratory Exam Location: rhonchi: Left, Right, Lower, Upper - Cardiovascular Cardiovascular exam: Present: irregular rhythm, tachycardia - GI/Abdominal Exam GI/Abdominal exam: Present: diminished bowel sounds. Absent: guarding, tenderness - Additional comments: Bilateral nephrostomy tubes intact, ileal conduit present - Extremities Exam Extremities exam: Present: normal inspection (Lower extremity edema) - Expanded Lower Extremities Exam Lower Leg exam: Present: swelling - Neurological Exam Neurological exam: Present: altered Additional comments: Unresponsive, pupils reactive - Psychiatric Psychiatric exam: Absent: agitated, anxious - Skin Skin exam: Present: dry, warm Internal Medicine - CN: Reslt - Labs CBC & Chem 7: 12/25/16 04:17 12/25/16 04:17 - ABG Interpretation ABG results: ABG ABG pH 7.30 pH Units (7.32-7.45) L 12/25/16 04:41 ABG pCO2 38 mmHg (35-45) 12/25/16 04:41 ABG pO2 89 mmHg (85-104) 12/25/16 04:41 ABG O2 Saturation 96 % (95-98) 12/25/16 04:41 PT/INR, D-dimer PT 15.2 Seconds (9.4-12.1) H 12/23/16 21:02 Consult Discharge Plan - Plan Referrals: Cuco Galeano MD [Primary Care Provider] - Palliative Quality Palliative Quality: Screen for Code Status: Yes, Screen for Goals of Care: Yes, Screen for Pain: Yes, If Pain Regimen Started, Initiate Bowel Regimen: Yes, Screen for Nausea/Vomitting: Yes
== END 2016-12-26 14:41 | disposition hospice, inpatient (51) | DRG 698 ==
LOC: 3ANU 19:26 → EMEROO 19:26 → SUATTDRO 22:17 → 3ANU 22:46 → ICNU 12-25 02:45
PROVIDERS: ADMIT Internal Medicine; ATTEND Internal Medicine